=== PATIENT | female | born 1985 | race Caucasian/White ===

== ENCOUNTER 2021-05-02 19:00 | Emergency (ER) | payer MEDICAID, SELFPAY ==
[2021-05-02 19:05] VITALS: BP 116/73; PULSE 102; RESP 16; TEMP 36.9; O2SAT 100
[2021-05-02] MEDS: Normal Saline 1,000 ML 1000 ML IV (19:15)
[2021-05-02 19:53] LABS: Abs Immature Grans 0.02 10^3/uL (0.0-0.06); Absolute Basophil Count 0.04 10^3/uL (0.0-0.2); Absolute Eosinophil Count 0.02 10^3/uL (0.0-0.7); Absolute Lymphocyte Count 0.33 10^3/uL (1.2-3.4); Absolute Monocyte Count 0.63 10^3/uL (0.1-0.8); Absolute Neutrophil Count 4.93 10^3/uL (1.2-6.7); Basophils % 0.7; Eosinophils % 0.3; HCT 34.5 % (36.0-46.0); HGB 11.9 g/dL (11.2-15.7); Immature Grans % 0.3; Lymphocytes % 5.5; MCH 30.8 pg (27.0-33.0); MCHC 34.5 % (32.0-36.0); MCV 89.4 fL (80-95); MPV 10.9 fL (8.0-11.0); Monocytes % 10.6; Neutrophils % 82.6; Nucleated RBC 0 %; Platelet Count 233 10^3/uL (130-400); RBC 3.86 10^6/uL (3.93-5.22); RDW 12.5 % (11.7-14.6); RDW-SD 40.6 fL; WBC 5.97 10^3/uL (4.4-10.8)
[2021-05-02] MEDS: Ondansetron 4 MG/2 ML VIAL IVP (19:59)
[2021-05-02 20:11] LABS: ALT 12 U/L (14-59); AST 8 U/L (15-37); Albumin 3.6 g/dL (3.4-5.0); Alkaline Phosphatase 45 U/L (46-116); Anion Gap 14.9 mmol/L (3-11); BUN 4 mg/dL (7-18); Bilirubin, Total 0.3 mg/dL (0.2-1.0); CO2 17.1 mmol/L (21.0-32.0); CREATININE 0.5 mg/dL (0.55-1.02); Calcium 8.8 mg/dL (8.5-10.1); Chloride 103 mmol/L (98-107); Glucose 90 mg/dL (74-106); Lipase 164 U/L (73-393); Potassium 3.3 mmol/L (3.5-5.1); Sodium 135 mmol/L (136-145); Total Protein 7.2 g/dL (6.4-8.2)
[2021-05-02 20:11] LABS: Source Nasal/Nares
[2021-05-02 20:13] LABS: Bilirubin Negative (Negative); Blood Negative (Negative); Clarity Clear (Clear); Glucose Negative (Negative); Ketones >=160 mg/dL (Negative); Leukocyte Esterase Negative (Negative); Nitrite Negative (Negative); Urobilinogen 0.2 EU/dL (Up TO 0.2)
--- NOTE | 2021-05-02 20:31 | ED.GENADUL_ITS ---
Discharge Plan Disposition Patient Disposition: HOME Condition: Improving Discharge Details Clinical Impression: COVID Primary Care Provider: Zhao Montes ED Provider: Devan Conte Home Meds and New Rx's Prescriptions: Continued multivit,tx w/iron (hematinic) Tablet 1 tab PO DAILY RF: 0 omega-3 fatty acids Capsule 450 cap PO DAILY RF: 0 magnesium Tablet 1 tab PO DAILY RF: 0 Discharge Instructions Instructions: COVID-19 (Coronavirus Disease 2019) (ED) Additional Instructions: You have tested positive for Covid. As we discussed you should be quarantining for a minimum of 5 days and until you are symptoms are improving and you are afebrile without any antipyretics. Your laboratory values do reveal that you are dry and you have received 2 L of IV fluid. Zofran as directed. Please watch for new or worsening symptoms and return to the ER for any concerns. I have set you up for an ultrasound tomorrow morning, the radiology department should contact you to set up a time, be sure to let them know your test today was Covid. I have also placed you on the [facility] list to help expedite outpatient [facility] [employer] care, please contact their office tomorrow as well. Last, please contact your primary care provider tomorrow to discuss your ER visit, ongoing symptoms, and need for outpatient reevaluation. Referrals: Jeniffer Lara MD [ [facility] STAFF PHYSICIAN] - Discharge Data Discharge Date/Time-TO BE ENTERED AT DEPARTURE: 05/02/21 21:58 Medical Decision Making <AYLA Reeves - Last Filed: 05/02/21 21:44> 35-year-old female G4, P1, approximately 10 weeks , presents to the ER concerned about food poisoning, abdominal cramping, nausea, vomiting, body aches, fever, left lower back pain. Clinically she appears dry, heart rate of 102, but her abdomen is soft, nontender. She denies any dysuria or hematuria. Denies any vaginal bleeding or discharge. I am unable to reproduce any back discomfort. No CVA tenderness. Based upon her presentation extremely low suspicion for ectopic , pyelonephritis, etc. Given her fever, although afebrile now without any antipyretic, will obtain a Covid swab. Plan is to obtain a quantitative hCG, CBC, CMP, urinalysis, give IV fluid and Zofran Patient receiving first liter of IV fluid and given Zofran, reports improvement of her symptoms. Heart rate now in the 90s No evidence of leukocytosis or severe anemia. Platelet count is unremarkable. Sodium of 135, potassium 3.3, anion gap elevated at 14.9, creatinine 0.5 with a GFR greater than 60. Lipase 164. Beta hCG is appropriate at 157,092. Her urine reveals greater than 160 ketones but otherwise unremarkable. No evidence of infection. Given her ketones, signs of dehydration, will give a liter of lactated Ringer's as well. Case was discussed with Dr. Larson who personally evaluated the patient performed a bedside ultrasound confirming intrauterine . Please see his note. Covid positive resulted. This could certainly explain her symptoms. She remains afebrile, heart rate is no longer revealing tachycardia. Oxygen level of 100% on room air. We discussed her test result. Plan is to treat with Zofran, adequate hydration electrolyte intake at home, and very strict discharge and return precautions were provided. I will get her on the women's health list to help expedite outpatient [employer] care as well as get her an outpatient transvaginal-pelvic ultrasound tomorrow. I did stress that she let radiology department know that she is Covid positive. We also discussed standard [facility] quarantine procedures. Her plan is to contact her primary care provider tomorrow to discuss her ongoing symptoms and outpatient reevaluation likely upon telemedicine. Patient is without other risk factors and is not qualify for emergent ER monoclonal antibody infusion. This documentation was generated using [employer] dictation system, please disregard any oddities of phrase or misspellings. Medical Records Medical records reviewed: Yes I reviewed the patient's medical records. Lab Data Lab results reviewed: Yes I reviewed the patient's lab results. Labs: Laboratory Tests Range/Units 05/02/21 05/02/21 05/02/21 19:30 19:30 19:55 WBC (4.4-10.8) 10^3/uL 5.97 RBC (3.93-5.22) 10^6/uL 3.86 L Hgb (11.2-15.7) g/dL 11.9 Hct (36.0-46.0) % 34.5 L MCV (80-95) fL 89.4 MCH (27.0-33.0) pg 30.8 MCHC (32.0-36.0) % 34.5 RDW (11.7-14.6) % 12.5 Plt Count (130-400) 10^3/uL 233 MPV (8.0-11.0) fL 10.9 Immature Gran % 0.3 Neutrophils % 82.6 Lymphocytes % 5.5 Monocytes % 10.6 Eosinophils % 0.3 Basophils % 0.7 Nucleated RBC % % 0 Absolute Neutrophils (1.2-6.7) 10^3/uL 4.93 Absolute Lymphocytes (1.2-3.4) 10^3/uL 0.33 L Absolute Monocytes (0.1-0.8) 10^3/uL 0.63 Absolute Eosinophils (0.0-0.7) 10^3/uL 0.02 Absolute Basophils (0.0-0.2) 10^3/uL 0.04 Sodium (136-145) mmol/L 135 L Potassium (3.5-5.1) mmol/L 3.3 L Chloride (98-107) mmol/L 103 Carbon Dioxide (21.0-32.0) mmol/L 17.1 L Anion Gap (3-11) mmol/L 14.9 H BUN (7-18) mg/dL 4 L Creatinine (0.55-1.02) mg/dL 0.5 L Estimated GFR/1.73 m2 (mL/min/1.73m2) >= 60.00 Glucose (74-106) mg/dL 90 Calcium (8.5-10.1) mg/dL 8.8 Total Bilirubin (0.2-1.0) mg/dL 0.3 AST (15-37) U/L 8 L ALT (14-59) U/L 12 L Alkaline Phosphatase (46-116) U/L 45 L Total Protein (6.4-8.2) g/dL 7.2 Albumin (3.4-5.0) g/dL 3.6 Lipase (73-393) U/L 164 Beta HCG, Quant (1-3) mIU/mL [id number] H Urine Color (Yellow) Urine Clarity (Clear) Urine pH (5-8) Ur Specific Mcnabb (1.005-1.025) Urine Protein (Negative) mg/dL Urine Ketones (Negative) mg/dL Urine Blood (Negative) Urine Nitrite (Negative) Urine Bilirubin (Negative) Urine Urobilinogen (Up TO 0.2) EU/dL Ur Leukocyte Esterase (Negative) Urine Glucose (Negative) mg/dL COVID-19 Source SARS-CoV-2 (PCR) (Negative) Influenza Type A (PCR) (Negative) Influenza Type B (PCR) (Negative) RSV (PCR) (Negative) Patient ABO/Rh O Negative Range/Units 05/02/21 05/02/21 20:00 20:00 WBC (4.4-10.8) 10^3/uL RBC (3.93-5.22) 10^6/uL Hgb (11.2-15.7) g/dL Hct (36.0-46.0) % MCV (80-95) fL MCH (27.0-33.0) pg MCHC (32.0-36.0) % RDW (11.7-14.6) % Plt Count (130-400) 10^3/uL MPV (8.0-11.0) fL Immature Gran % Neutrophils % Lymphocytes % Monocytes % Eosinophils % Basophils % Nucleated RBC % % Absolute Neutrophils (1.2-6.7) 10^3/uL Absolute Lymphocytes (1.2-3.4) 10^3/uL Absolute Monocytes (0.1-0.8) 10^3/uL Absolute Eosinophils (0.0-0.7) 10^3/uL Absolute Basophils (0.0-0.2) 10^3/uL Sodium (136-145) mmol/L Potassium (3.5-5.1) mmol/L Chloride (98-107) mmol/L Carbon Dioxide (21.0-32.0) mmol/L Anion Gap (3-11) mmol/L BUN (7-18) mg/dL Creatinine (0.55-1.02) mg/dL Estimated GFR/1.73 m2 (mL/min/1.73m2) Glucose (74-106) mg/dL Calcium (8.5-10.1) mg/dL Total Bilirubin (0.2-1.0) mg/dL AST (15-37) U/L ALT (14-59) U/L Alkaline Phosphatase (46-116) U/L Total Protein (6.4-8.2) g/dL Albumin (3.4-5.0) g/dL Lipase (73-393) U/L Beta HCG, Quant (1-3) mIU/mL Urine Color (Yellow) Yellow Urine Clarity (Clear) Clear Urine pH (5-8) 7.0 Ur Specific Mcnabb (1.005-1.025) 1.020 Urine Protein (Negative) mg/dL Negative Urine Ketones (Negative) mg/dL >=160 H Urine Blood (Negative) Negative Urine Nitrite (Negative) Negative Urine Bilirubin (Negative) Negative Urine Urobilinogen (Up TO 0.2) EU/dL 0.2 Ur Leukocyte Esterase (Negative) Negative Urine Glucose (Negative) mg/dL Negative COVID-19 Source Nasal/Nares SARS-CoV-2 (PCR) (Negative) POSITIVE A* Influenza Type A (PCR) (Negative) Negative Influenza Type B (PCR) (Negative) Negative RSV (PCR) (Negative) Negative Patient ABO/Rh <George Larson MD - Last Filed: 05/05/21 09:03> Patient seen, examined, and discussed with AYLA Conte. [id number] bedside transabdominal ultrasound, early first trimester OB, was performed by me: Gestational sac with fetus present, heart rate 190. Patient is covid positive. No hypoxia or respiratory distress. I agree with treatment plan as discussed/documented by AYLA Conte. HPI <AYLA Reeves - Last Filed: 05/02/21 21:44> General Mode of arrival: ambulatory . Date/Time Provider Initiated Documentation: 05/02/21 19:07 . Limitations to Documentation: no limitations . Information obtained by: patient . HPI Narrative: This is a 35-year-old female, G4, P1, 2 abortions, approximately 10 weeks , has not had any care yet, presents to the ER reporting body aches, fever of 101.5 at home, low left back-upper buttock pain and bilateral flank discomfort that wraps around to her abdomen associated with cramping, nausea, vomiting x2 today. She states that she initially thought that she had food poisoning as she ate some pesto that was questionable last night, her did have a stomachache today but is not quite as sick as she is. She denies recent illness or sick contacts. She states that she is vaccinated for Covid. She denies headache, neck pain, chest pain, shortness of breath, dysuria, hematuria, vaginal bleeding or discharge. She has not taken any medication for her symptoms today. She does state that she took at home Covid test earlier today and it was negative Related Data Home Medications Medication Instructions Recorded Confirmed magnesium 1 tab PO DAILY 05/02/21 05/02/21 multivit,tx w/iron (hematinic) 1 tab PO DAILY 05/02/21 05/02/21 omega-3 fatty acids 450 cap PO DAILY 05/02/21 05/02/21 Allergies Allergy/AdvReac Type Severity Reaction Status Date / Time codeine Allergy Unverified 05/02/21 19:10 General Stated Complaint: FlankPain ELIZABETH: 3 Review of Systems <AYLA Reeves - Last Filed: 05/02/21 21:44> Constitutional Constitutional: Reports fever(s) and Denies headache(s) ENT Ears, Nose, Mouth, and Throat: Denies headache(s) and Denies neck pain Cardiovascular Cardiovascular: Denies chest pain and Denies dyspnea Respiratory Respiratory: Denies cough and Denies dyspnea Gastrointestinal Gastrointestinal: Reports abdominal pain, Denies constipation, Denies diarrhea, Reports nausea and Reports vomiting Genitourinary Genitourinary: Denies abnormal vaginal bleeding, Denies dysuria, Denies pelvic pain and Denies vaginal discharge Musculoskeletal Musculoskeletal: Reports back pain, Reports myalgias and Denies neck pain Integumentary/Breasts Skin/Breast: Denies rash Neurologic Neurologic: Denies headache(s) PFS <AYLA Reeves - Last Filed: 05/02/21 21:44> All Active Problems (Updated 05/02/21 @ 21:40 by AYLA Reeves) COVID (Acute) Social History Smoking/Tobacco Use Status: Never Smoking risk assessment performed?: Yes Alcohol Intake: never Drug use: Never Substance use type: does not use Do you feel safe at home: Yes Do you feel safe in your relationship?: Yes Exam <AYLA Reeves - Last Filed: 05/02/21 21:44> Const General: cooperative, healthy appearing, comfortable and no acute distress Orientation: alert, awake and oriented x3 HENMT Head: normal to inspection, normocephalic and atraumatic Mouth: moist mucous membranes abnormal (dry) Eyes General: appearance normal, both eyes and all related structures Conjunctivae: conjunctivae normal Neck Neck: normal visual inspection, full ROM, no meningeal signs, trachea midline, supple and nontender Resp Effort & Inspection: normal respiratory effort and able to speak in complete sentences Auscultation: clear to auscultation bilaterally Cardio Rate: tachycardic (102) Rhythm: regular rhythm GI Inspection: normal to inspection Palpation: soft, not firm, no guarding, no pulsatile masses and nontender Auscultation: normal bowel sounds Other: Examination consistent with approximately 10 weeks Back/Spine/Pelvis Back: no CVA tenderness and No back tenderness Skin General skin exam: no rashes or lesions noted Neuro General: patient alert, patient awake, moves all extremities and no focal motor deficits Cognition: normal cognition Gait: normal gait Sensory Exam: no sensory deficits noted Extrem General: normal to inspection, full ROM, capillary refill normal, no pedal edema and no calf tenderness Psych Appearance: grossly normal Mental Status: mental status grossly normal Course <AYLA Reeves - Last Filed: 05/02/21 21:44> Vital Signs Vital signs: Vital Signs Temperature 36.9 C 05/02/21 19:05 Pulse 102 H 05/02/21 19:05 Respiratory Rate 16 05/02/21 19:05 Blood Pressure 116/73 05/02/21 19:05 Pulse Oximetry 100 05/02/21 19:05 Temperature 36.9 C 05/02/21 19:05 Temperature Source Skin 05/02/21 19:05 Pulse 102 H 05/02/21 19:05 Respiratory Rate 16 05/02/21 19:05 Respiratory Effort 05/02/21 19:09 Blood Pressure 116/73 05/02/21 19:05 Blood Pressure Position Sitting 05/02/21 19:05 Pulse Oximetry 100 05/02/21 19:05 Oxygen Delivery Method Room Air 05/02/21 19:05 Oxygen Flow Rate 0 05/02/21 19:05 Pain Level 7 05/02/21 19:13 Lab/Test Results Lab/Test Results: Laboratory Tests Range/Units 05/02/21 05/02/21 05/02/21 19:30 19:30 20:00 WBC (4.4-10.8) 10^3/uL 5.97 RBC (3.93-5.22) 10^6/uL 3.86 L Hgb (11.2-15.7) g/dL 11.9 Hct (36.0-46.0) % 34.5 L MCV (80-95) fL 89.4 MCH (27.0-33.0) pg 30.8 MCHC (32.0-36.0) % 34.5 RDW (11.7-14.6) % 12.5 Plt Count (130-400) 10^3/uL 233 MPV (8.0-11.0) fL 10.9 Immature Gran % 0.3 Neutrophils % 82.6 Lymphocytes % 5.5 Monocytes % 10.6 Eosinophils % 0.3 Basophils % 0.7 Nucleated RBC % % 0 Absolute Neutrophils (1.2-6.7) 10^3/uL 4.93 Absolute Lymphocytes (1.2-3.4) 10^3/uL 0.33 L Absolute Monocytes (0.1-0.8) 10^3/uL 0.63 Absolute Eosinophils (0.0-0.7) 10^3/uL 0.02 Absolute Basophils (0.0-0.2) 10^3/uL 0.04 Sodium (136-145) mmol/L 135 L Potassium (3.5-5.1) mmol/L 3.3 L Chloride (98-107) mmol/L 103 Carbon Dioxide (21.0-32.0) mmol/L 17.1 L Anion Gap (3-11) mmol/L 14.9 H BUN (7-18) mg/dL 4 L Creatinine (0.55-1.02) mg/dL 0.5 L Estimated GFR/1.73 m2 (mL/min/1.73m2) >= 60.00 Glucose (74-106) mg/dL 90 Calcium (8.5-10.1) mg/dL 8.8 Total Bilirubin (0.2-1.0) mg/dL 0.3 AST (15-37) U/L 8 L ALT (14-59) U/L 12 L Alkaline Phosphatase (46-116) U/L 45 L Total Protein (6.4-8.2) g/dL 7.2 Albumin (3.4-5.0) g/dL 3.6 Lipase (73-393) U/L 164 Urine Color (Yellow) Yellow Urine Clarity (Clear) Clear Urine pH (5-8) 7.0 Ur Specific Mcnabb (1.005-1.025) 1.020 Urine Protein (Negative) mg/dL Negative Urine Ketones (Negative) mg/dL >=160 H Urine Blood (Negative) Negative Urine Nitrite (Negative) Negative Urine Bilirubin (Negative) Negative Urine Urobilinogen (Up TO 0.2) EU/dL 0.2 Ur Leukocyte Esterase (Negative) Negative Urine Glucose (Negative) mg/dL Negative COVID-19 Source Range/Units 05/02/21 20:00 WBC (4.4-10.8) 10^3/uL RBC (3.93-5.22) 10^6/uL Hgb (11.2-15.7) g/dL Hct (36.0-46.0) % MCV (80-95) fL MCH (27.0-33.0) pg MCHC (32.0-36.0) % RDW (11.7-14.6) % Plt Count (130-400) 10^3/uL MPV (8.0-11.0) fL Immature Gran % Neutrophils % Lymphocytes % Monocytes % Eosinophils % Basophils % Nucleated RBC % % Absolute Neutrophils (1.2-6.7) 10^3/uL Absolute Lymphocytes (1.2-3.4) 10^3/uL Absolute Monocytes (0.1-0.8) 10^3/uL Absolute Eosinophils (0.0-0.7) 10^3/uL Absolute Basophils (0.0-0.2) 10^3/uL Sodium (136-145) mmol/L Potassium (3.5-5.1) mmol/L Chloride (98-107) mmol/L Carbon Dioxide (21.0-32.0) mmol/L Anion Gap (3-11) mmol/L BUN (7-18) mg/dL Creatinine (0.55-1.02) mg/dL Estimated GFR/1.73 m2 (mL/min/1.73m2) Glucose (74-106) mg/dL Calcium (8.5-10.1) mg/dL Total Bilirubin (0.2-1.0) mg/dL AST (15-37) U/L ALT (14-59) U/L Alkaline Phosphatase (46-116) U/L Total Protein (6.4-8.2) g/dL Albumin (3.4-5.0) g/dL Lipase (73-393) U/L Urine Color (Yellow) Urine Clarity (Clear) Urine pH (5-8) Ur Specific Mcnabb (1.005-1.025) Urine Protein (Negative) mg/dL Urine Ketones (Negative) mg/dL Urine Blood (Negative) Urine Nitrite (Negative) Urine Bilirubin (Negative) Urine Urobilinogen (Up TO 0.2) EU/dL Ur Leukocyte Esterase (Negative) Urine Glucose (Negative) mg/dL COVID-19 Source Nasal/Nares
[2021-05-02] MEDS: Lactated Ringers 1,000 ML 1000 ML IV (20:32)
[2021-05-02 20:50] LABS: Influenza A PCR Negative (Negative); Influenza B PCR Negative (Negative); RSV PCR Negative (Negative)
[2021-05-02 21:15] LABS: COVID-19 PCR POSITIVE (Negative)
[2021-05-02 21:53] VITALS: BP 102/57; PULSE 93; RESP 16; TEMP 38.6; O2SAT 97
[2021-05-02] MEDS: Ondansetron O.D.T. 4 MG TABEF, 3 TABS/BTL PO (22:00)
--- NOTE | 2021-05-03 08:27 | NUR.NOTE ---
Per KAROLINA Tran financial secretary, patient was called for outpt testing and she is now COVID positive. She elected to wait until next week May.08 at 11am to do the exam. Tracey Ramos Nursing Note:
== END 2021-05-02 21:58 | disposition home or self-care (01) ==
PROVIDERS: Emergency Provider Physician Assistant; PCP General Practice
DX: O98.511 Other viral diseases complicating pregnancy, first trimester (principal); Z3A.10 10 weeks gestation of pregnancy; U07.1 COVID-19
CPT/HCPCS: 36415; 80053; 83690; 86900; 86901; 87637; 96361; 96374; 99283; 99284; 81003; 84702; 85025; J2405

== ENCOUNTER 2021-05-08 01:09 | Outpatient (CLI) | payer MEDICAID, SELFPAY ==
--- NOTE | 2021-05-08 11:24 | DI.US_ITS ---
Exam(s) US OB 1ST TRIMESTER EXAM: US OB 1ST TRIMESTER CLINICAL HISTORY: ABD CRAMPING, 10 WEEKS , F/U IN ED. COMPARISON: No exams were available for comparison TECHNIQUE: Transabdominal Transvaginal first trimester obstetrical ultrasound performed. FINDINGS: Sonographic images demonstrate a single intrauterine gestation. A yolk sac and pole are seen. Sonographically assessed gestational age based upon crown-rump length of 3.4 cm is: 10 weeks 2 days Estimated date of delivery based on this ultrasound is: 12/02/2021 heart rate motion is Dopplered at: 163 bpm. No free fluid identified. Pelvic Measurments Uterus: 11.0 long x 7.5 AP x 9.6 transverse cm Rt Ovary: Not visualized on this examination. Lt Ovary: 3.3 x 3.0 x 2.5 cm IMPRESSION: Single live intrauterine gestation as above. DATA REPOSITORY:
== END 2021-05-08 01:29 ==
PROVIDERS: PCP General Practice; Visit Provider Physician Assistant
DX: O26.891 Other specified pregnancy related conditions, first trimester (principal); R10.84 Generalized abdominal pain; Z3A.10 10 weeks gestation of pregnancy
CPT/HCPCS: 76801

== ENCOUNTER 2021-06-08 03:51 | Outpatient (CLI) | payer MEDICAID, SELFPAY ==
[2021-06-08 15:13] LABS: Abs Immature Grans 0.03 10^3/uL (0.0-0.06); Absolute Basophil Count 0.05 10^3/uL (0.0-0.2); Absolute Eosinophil Count 0.05 10^3/uL (0.0-0.7); Absolute Lymphocyte Count 2.21 10^3/uL (1.2-3.4); Absolute Monocyte Count 0.58 10^3/uL (0.1-0.8); Absolute Neutrophil Count 6.25 10^3/uL (1.2-6.7); Basophils % 0.5; Eosinophils % 0.5; HCT 35.1 % (36.0-46.0); Immature Grans % 0.3; Lymphocytes % 24.1; MCH 30.8 pg (27.0-33.0); MCHC 34.2 % (32.0-36.0); MCV 90.2 fL (80-95); Monocytes % 6.3; Neutrophils % 68.3; Nucleated RBC 0 %; Platelet Count 262 10^3/uL (130-400); RBC 3.89 10^6/uL (3.93-5.22); RDW 12.8 % (11.7-14.6); RDW-SD 42.2 fL; WBC 9.17 10^3/uL (4.4-10.8)
[2021-06-08 16:45] LABS: TSH (W/Ref FT4) 1.41 uIU/mL (0.36-3.74); Vitamin B12 581 pg/mL (193-986)
[2021-06-10 13:44] LABS: Varicella IgG Antibody Positive (See Note)
[2021-06-10 13:48] LABS: Rubella IgG Ab (UVM) Positive (See Note)
[2021-06-11 10:23] LABS: Hepatitis C Ab w Rflx HCV PCR Negative (Negative)
[2021-06-11 11:36] LABS: HIV-1/2 Ag & Ab Screen Negative (Negative)
[2021-06-11 11:52] LABS: Hepatitis B Surface Ag Negative (Negative)
[2021-06-11 15:09] LABS: Syphilis IgG w/Reflex Nonreactive (Nonreactive)
== END 2021-06-08 03:52 | disposition home or self-care (01) ==
LOC: LBO 03:51
PROVIDERS: Advanced Practice Midwife; PCP General Practice; Visit Provider Advanced Practice Midwife
DX: Z34.91 Encounter for supervision of normal pregnancy, unspecified, first trimester (principal); Z83.49 Family history of other endocrine, nutritional and metabolic diseases; D51.0 Vitamin B12 deficiency anemia due to intrinsic factor deficiency
CPT/HCPCS: 36415; 86787; 86803; 86850; 86900; 86901; 87340; 87389; 82607; 84443; 85025; 86762; 86780

== ENCOUNTER 2021-06-08 15:25 | Outpatient (REF) | payer MEDICAID, SELFPAY ==
[2021-06-08 17:23] LABS: *AMPHETAMINES SCREEN URINE Negative (Negative); *BARBITURATES SCREEN URINE Negative (Negative); *BENZODIAZEPINES SCREEN URINE Negative (Negative); Cannabinoids THC Negative (Negative); Cocaine Screen,Urine Negative (Negative); METHADONE URINE SCREEN Negative (Negative); OPIATES URINE SCREEN Negative (Negative)
[2021-06-08 17:24] LABS: Tricyclic Antidepressants Negative (Negative)
[2021-06-11 14:18] LABS: Chlamydia Result Negative (Negative); GC Result Negative (Negative)
[2021-06-14 10:30] LABS: Buprenorphine Negative ng/mL (Cutoff: 5.0)
== END 2021-06-08 15:26 | disposition home or self-care (01) ==
LOC: LBN 15:25
PROVIDERS: PCP General Practice; Visit Provider Advanced Practice Midwife
DX: Z34.91 Encounter for supervision of normal pregnancy, unspecified, first trimester (principal)
CPT/HCPCS: 80307; 87491; 87591; 87086

== ENCOUNTER 2021-07-10 02:56 | Outpatient (CLI) | payer MEDICAID, SELFPAY ==
--- NOTE | 2021-07-10 07:45 | DI.US_ITS ---
Exam(s) US OB 2-3 TRIMESTER EXAM: US OB 2-3 TRIMESTER CLINICAL HISTORY: ,Z34.90. TECHNIQUE: Transabdominal obstetrical ultrasound performed. COMPARISON: US US OB 1ST TRIMESTER from 05/08/2021 FINDINGS: Transabdominal obstetrical ultrasound performed. FINDINGS: Number of fetuses: One. position: Cephalic heart rate: 155 bpm. Placental location: There is a grade 1 posterior placenta. No evidence of previa. Amniotic fluid index: Amount of fluid is within normal limits. ANATOMICAL SURVEY: Within normal limits. BIOMETRIC DATA: BPD: 4.4cm consistent with 19 weeks 2 days. HC: 16.2cm consistent with 19 weeks. AC: 13.6cm consistent with 19 weeks 1 day. FL: 2.8cm consistent with 18 weeks 4 days. Cisterna Magna: 3.0 mm Cerebellum: 1.92 cm EFW: 261 grms 23% Composite Age: 19 weeks EDC by US: 12/04/2021 IMPRESSION: 1. Single live intrauterine gestation as above. 2. Normal anatomic survey. DATA REPOSITORY:
== END 2021-07-10 03:16 ==
PROVIDERS: PCP General Practice; Visit Provider Advanced Practice Midwife
DX: Z34.92 Encounter for supervision of normal pregnancy, unspecified, second trimester (principal); Z3A.19 19 weeks gestation of pregnancy
CPT/HCPCS: 76805

== ENCOUNTER 2021-09-04 03:02 | Outpatient (CLI) | payer MEDICAID, SELFPAY ==
[2021-09-04 11:19] LABS: Abs Immature Grans 0.03 10^3/uL (0.0-0.06); Absolute Basophil Count 0.05 10^3/uL (0.0-0.2); Absolute Eosinophil Count 0.08 10^3/uL (0.0-0.7); Absolute Lymphocyte Count 1.67 10^3/uL (1.2-3.4); Absolute Monocyte Count 0.56 10^3/uL (0.1-0.8); Absolute Neutrophil Count 7.15 10^3/uL (1.2-6.7); Basophils % 0.5; Eosinophils % 0.8; HCT 33.5 % (36.0-46.0); HGB 11.5 g/dL (11.2-15.7); Immature Grans % 0.3; Lymphocytes % 17.5; MCH 32.1 pg (27.0-33.0); MCHC 34.3 % (32.0-36.0); MCV 94 fL (80-95); MPV 11.3 fL (8.0-11.0); Monocytes % 5.9; Platelet Count 220 10^3/uL (130-400); RBC 3.58 10^6/uL (3.93-5.22); RDW 12.7 % (11.7-14.6); RDW-SD 43.8 fL; WBC 9.54 10^3/uL (4.4-10.8)
[2021-09-04 11:30] LABS: Glucose,1 Hr (Glucola) 75 mg/dL (80-140)
== END 2021-09-04 03:03 | disposition home or self-care (01) ==
LOC: LBO 03:02
PROVIDERS: PCP General Practice; Visit Provider Obstetrics & Gynecology
DX: O26.892 Other specified pregnancy related conditions, second trimester (principal); Z67.91 Unspecified blood type, Rh negative; Z3A.27 27 weeks gestation of pregnancy
CPT/HCPCS: 36415; 82950; 86850; 90384; 85025

== ENCOUNTER 2021-11-08 12:41 | Outpatient (REF) | payer MEDICAID, SELFPAY ==
[2021-11-08 16:18] LABS: *AMPHETAMINES SCREEN URINE Negative (Negative); *BARBITURATES SCREEN URINE Negative (Negative); *BENZODIAZEPINES SCREEN URINE Negative (Negative); Cannabinoids THC Negative (Negative); Cocaine Screen,Urine Negative (Negative); METHADONE URINE SCREEN Negative (Negative); OPIATES URINE SCREEN Negative (Negative)
[2021-11-08 16:28] LABS: Tricyclic Antidepressants Negative (Negative)
[2021-11-14 11:26] LABS: Buprenorphine Negative ng/mL (Cutoff: 5.0); Norbuprenorphine Negative ng/mL (Cutoff: 2.5)
== END 2021-11-08 12:42 | disposition home or self-care (01) ==
LOC: LBN 12:41
PROVIDERS: PCP General Practice; Visit Provider Advanced Practice Midwife
DX: Z34.93 Encounter for supervision of normal pregnancy, unspecified, third trimester (principal); Z36.85 Encounter for antenatal screening for Streptococcus B
CPT/HCPCS: 80307; 87081

== ENCOUNTER 2021-12-11 16:03 | Inpatient (IN) | payer MEDICAID, SELFPAY ==
[2021-12-11] VITALS (9 sets, daily range): BP systolic 108–120; BP diastolic 66–71; PULSE 67–89; RESP 17–18; TEMP 36.6–37.3; O2SAT 98–99
--- NOTE | 2021-12-11 16:05 | W.PM.OBHPL1 ---
Date of service: 12/11/21 Time of Service: 16:06 Assessment and Plan Assessment and plan (1) Post-dates : Status: Acute Assessment and plan: I discussed my concern about the heart rate pattern and the need for close surveillance of well being. Rosenda is tearful and disappointed expressing that she wishes she would just go into labor. She and her verbalize understanding of the recommendation for continued monitoring of the baby and agree at this time. She was moved to a more comfortable room and will await signs of active labor which may be stimulated by the recent cervical exam. Comfort measures and anticipate . Dr Lemus is the chemical engineering professor motion picture set up worker and is aware of this plan. (2) Category II heart rate tracing during maternal care in third trimester: Status: Acute Assessment and plan: Will continue to observe FHR pattern continuously. PO fluids provided. Rosenda hopes to avoid induction of labor and prefers natural . Will consider induction if no signs of active labor in 24 hours. OB-HPI Labor/Delivery History of Present Illness Chief Complaint: Other (category 2 tracing). JAIRO Calculator Estimated Delivery Date Method Current WG Current Estimate 12/02/21 Ultrasound #1 41w 2d Comments: Rosenda came to the Center for post dates testing at 41 + 2 weeks gestation. Shortly after being placed on the monitor, a heart rate deceleration was heard and confirmed by O2 sat monitor. The monitor was removed for visualization of the heart by US performed by Dr. Lara. bradycardia was confirmed by US. The deceleration lasted for approximately 5 minutes. FELIPE measurements were obtained by Dr Lara with vertical pockets measured in all 4 quadrants for an FELIPE of 10. History of Present Expected Delivery Route/Plan - CNM FOB - Simba Hung Doesn't want to know gender, if male no circ Team is LAURY Cottrell, friend Chelo and certified giuseppe Guido GBS - negative Specific Issues/Plan 1. Vaccinated with J & J, Covid+ 05/02/21, discussed ASA daily and offer 32 week US: declined 1A. 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 1b. FOB is vaccinated 1c. Prefers to wait and consider whether to have the 32 US. 09/27: declines 32 wk scan 2. RH neg- rhogam @ 28 wks: done 5/31 3. MTHFR mutation 4. Declines serum genetic testing 5. Pernicious anemia, takes methylated B12, level at initial OB is nml @ 581 6. Chronic low back pain - Doing myofascial release with Abbie Watson [facility] All Active Problems (Updated 12/11/21 @ 16:12 by Carey Montero CNM) Category II heart rate tracing during maternal care in third trimester (Acute) Post-dates (Acute) Rh negative state in antepartum period (Acute) Low back pain (Acute) coccgeal injuries - sees a seismic engineer MTHFR gene mutation (Acute) Pernicious anemia (Acute) Takes oral methylated B-12 (Acute) COVID (Acute) Tested positive 05/02/21 Medical History (Updated 12/11/21 @ 16:12 by Carey Montero CNM) Family history of thyroid disease in mother Lyme disease [id number], treated with herbal medicine Surgical History (Updated 06/08/21 @ 14:54 by Carey Montero CNM) Fracture, clavicle Family History (Updated 06/08/21 @ 13:38 by Carey Montero CNM) Mother Depression Osteoarthritis Graves' disease H/O radioactive iodine thyroid ablation Maternal Grandfather Substance use disorder Maternal Grandmother Substance use disorder Social History Smoking/Tobacco Use Status: Never Smoking risk assessment performed?: Yes Alcohol Intake: never Drug use: Never Substance use type: does not use Do you feel safe at home: Yes Do you feel safe in your relationship?: Yes History History 4 Para 1 Hx # Term Pregnancies 1 Multiple births 0 Hx # Pregnancies 0 Ectopic pregnancies 0 AB induced 2 Hx Number of Living Children 1 AB spontaneous 0 Past Pregnancies Del. Date GA/Weeks # Preg Succ Route Wgt Sex Labor Lgth Anesthesia Location Prov Complic 02/26/17 40 No Yes vaginal 8 lb 2 oz Male 17 regional [facility] Delivery Date: 02/26/17 Last Updated by: Julia Posada Home transfer for epidural, 4-5 hrs after arrival Sydni Meds Allergies and Home Medications Allergies Allergy/AdvReac Type Severity Reaction Status Date / Time codeine Allergy Verified 12/03/21 10:43 seasonal allergies Allergy Uncoded 12/03/21 10:43 Home Medications Medication Instructions Recorded Confirmed Type magnesium 1 tab PO DAILY 05/02/21 12/11/21 History omega-3 fatty acids 450 cap PO DAILY 05/02/21 12/11/21 History vitamin B complex (Complex B-100 1 tab PO DAILY 06/08/21 12/11/21 History tablet,extended release) multivitamin 1 tab PO DAILY 12/03/21 12/11/21 History Exam Physical Exam Vital signs: Temp Pulse BP Pulse Ox 97.9 F 67 108/68 99 12/11/21 14:50 12/11/21 14:50 12/11/21 14:50 12/11/21 14:24 Detailed Labor and Delivery Exam Dilation: 1 Effacement (%): 60 station: -2 Cervix position: mid Consistency: soft Lo Score: Cervical Points Exam 0 1 2 3 Dilation Closed 1-2cm 3-4 cm 5-6cm Effacement 0-30% 40-50% 60-70% 80% Consistency Firm Medium Soft Station -3 -2 -1,0 +1,+2 Position Posterior Mid Anterior LO Score(Cervical Ripeness Score): 7 Amniotic Membrane Status: Intact Contraction Frequency(min): irregular Contraction Duration(sec): 40-60 Contraction Intensity: Mild Fetus A Heart Rate Baseline: 140 Monitor Accelerations: 10 X 10 Monitor Decelerations: Variable Variability: Moderate (6-25 BPM) Presentation: Vertex Categories: Category II Est. Weight: 7 lb Respiratory Exam Respiratory Exam: Normal Cardiovascular Exam Cardiovascular Exam: Normal Abdominal Exam Abdominal Exam: Normal Exam Exam: Normal Extremities Exam Extremities Exam: Normal Skin Exam Skin Exam: Normal Psychiatric Exam Psychiatric Exam: Normal Risk Assessment Risk for Shoulder Dystocia Historical/Initial OB: NEGATIVE FOR: Pelvic Abnormality, Pre- BMI>30, Previous Shoulder Dystocia or Previous Macrosomia 40 Weeks: POSTIVE FOR: Post Dates; NEGATIVE FOR: EFW> 4500 gms or Maternal Weight Gain >40lb Delivery Plan @ 40 wks: expect NVD Risk for Pre-Eclampsia Date Initiated/Initials: 06/08/21 KM Yes, if one or more: NEGATIVE FOR: Hx Pre-E/Gest HTN, Chronic HTN, Multiple Gestation, Pre-gestational DM, Renal Disease, Systemic Lupus or APA Syndrome Yes, if 2 or more: NEGATIVE FOR: Nulliparity, Age>= 35 yrs, >10yr btwn pregnancies, BMI>30, ethinicty, Mother/Sister w/ Pre-E or Previous IUGR Risk for Post- Hemorrhage Initial: NEGATIVE FOR: Multiple Gestation, Previous PPH, Known Clotting Deficiency, Grand Multiparity or Anticoagulation Risks Reviewed Risks Reviewed Upon Admission: Yes
[2021-12-11 16:34] LABS: HCT 34.6 % (36.0-46.0); HGB 11.7 g/dL (11.2-15.7); MCH 30.4 pg (27.0-33.0); MCHC 33.8 % (32.0-36.0); MCV 90 fL (80-95); MPV 11.6 fL (8.0-11.0); Platelet Count 256 10^3/uL (130-400); RBC 3.85 10^6/uL (3.93-5.22); RDW 13.7 % (11.7-14.6); RDW-SD 44.7 fL; WBC 9.02 10^3/uL (4.4-10.8)
[2021-12-11 18:45] LABS: Source Nasal/Nares
[2021-12-11 19:19] LABS: COVID-19 PCR Negative (Negative)
--- NOTE | 2021-12-11 19:27 | W.PM.OBNL1 ---
Date of service: 12/11/21 Time of Service: 19:28 Pelvic Exam Dilation: 3 Effacement (%): 100 station: -1 Cervix Position: mid Consistency: soft Pooling: Negative Contractions Monitor Mode: External Contraction Frequency(min): every 4 Fetus A Monitor: External (US) Heart Rate Baseline: 135 Presentation: Vertex Variability: Moderate (6-25 BPM) Categories: Category I FHR Rhythm: Regular Characteristics: Normal Accelerations: 15 X 15 Decelerations: None Assessment Note: Continuous external monitoring. FHR pattern WNL. Assessment and Plan Assessment and plan (1) Category II heart rate tracing during maternal care in third trimester: Status: Acute Assessment and plan: Will continue to observe heart rate pattern. Rest encouraged. Will reassess for signs of labor when appropriate. Objective Abnormal lab results 12/11/21 Range/Units 16:22 RBC 3.85 L (3.93-5.22) 10^6/uL Hct 34.6 L (36.0-46.0) % MPV 11.6 H (8.0-11.0) fL Temp Pulse Resp BP Pulse Ox 97.9 F 79 18 110/66 98 12/11/21 16:45 12/11/21 16:49 12/11/21 16:45 12/11/21 16:48 12/11/21 16:49 Laboratory Results WBC 9.02 10^3/uL (4.4-10.8) 12/11/21 16:22 RBC 3.85 10^6/uL (3.93-5.22) L 12/11/21 16:22 Hgb 11.7 g/dL (11.2-15.7) 12/11/21 16:22 Hct 34.6 % (36.0-46.0) L 12/11/21 16:22 MCV 90 fL (80-95) 12/11/21 16:22 MCH 30.4 pg (27.0-33.0) 12/11/21 16:22 MCHC 33.8 % (32.0-36.0) 12/11/21 16:22 RDW 13.7 % (11.7-14.6) 12/11/21 16:22 Plt Count 256 10^3/uL (130-400) 12/11/21 16:22 MPV 11.6 fL (8.0-11.0) H 12/11/21 16:22 COVID-19 Source Nasal/Nares 12/11/21 16:13 SARS-CoV-2 (PCR) Negative (Negative) 12/11/21 16:13 Patient ABO/Rh O Negative 12/11/21 16:22 Antibody Screen POSITIVE 12/11/21 16:22 Antibody Identification Anti-D 12/11/21 16:22 Subjective Interval history since last seen: Contractions are occurring frequently but are described as mild by Rosenda. Rosenda declines induction of labor and prefers to await onset of spontaneous labor. She has been ambulating for comfort. Results Hemoglobin/Hematocrit: Hgb 11.7 g/dL (11.2-15.7) 12/11/21 16:22 Hct 34.6 % (36.0-46.0) L 12/11/21 16:22 Abnormal Lab Findings: Abnormal Labs 12/11/21 16:22 RBC 3.85 L Hct 34.6 L MPV 11.6 H
[2021-12-12] VITALS (37 sets, daily range): BP systolic 98–134; BP diastolic 53–80; PULSE 71–108; RESP 15–20; TEMP 36.6–37.3; O2SAT 98–100; BMI 29.0
--- NOTE | 2021-12-12 01:17 | W.PM.OBNL1 ---
Date of service: 12/12/21 Time of Service: 01:17 Pelvic Exam Comments: exam deferred Contractions Monitor Mode: External Contraction Frequency(min): every 2-4 Contraction Duration(sec): 40-60 Intensity: Mild Fetus A Monitor: External (US) Heart Rate Baseline: 130 Variability: Moderate (6-25 BPM) Categories: Category I FHR Rhythm: Regular Accelerations: 15 X 15 Decelerations: Variable Recurrence: Intermittent Assessment and Plan Assessment and plan (1) Post-dates : Status: Acute Assessment and plan: Rest was encouraged with continuous monitoring. Will reassess for signs of labor when Rosenda awakes. Will continue to assess FHR pattern. Dr. Lemus was on the unit at 0030 and assessed the tracing and agrees with this plan at this time. Objective Abnormal lab results 12/11/21 Range/Units 16: RBC 3.85 L (3.93-5.22) 10^6/uL Hct 34.6 L (36.0-46.0) % MPV 11.6 H (8.0-11.0) fL Temp Pulse Resp BP Pulse Ox 99.1 F 80 18 115/71 98 12/11/21 20:49 12/11/21 20:49 12/11/21 16:45 12/11/21 20:49 12/11/21 16:49 Laboratory Results WBC 9.02 10^3/uL (4.4-10.8) 12/11/21 16:22 RBC 3.85 10^6/uL (3.93-5.22) L 12/11/21 16:22 Hgb 11.7 g/dL (11.2-15.7) 12/11/21 16:22 Hct 34.6 % (36.0-46.0) L 12/11/21 16:22 MCV 90 fL (80-95) 12/11/21 16:22 MCH 30.4 pg (27.0-33.0) 12/11/21 16:22 MCHC 33.8 % (32.0-36.0) 12/11/21 16:22 RDW 13.7 % (11.7-14.6) 12/11/21 16:22 Plt Count 256 10^3/uL (130-400) 12/11/21 16:22 MPV 11.6 fL (8.0-11.0) H 12/11/21 16:22 COVID-19 Source Nasal/Nares 12/11/21 16:13 SARS-CoV-2 (PCR) Negative (Negative) 12/11/21 16:13 Patient ABO/Rh O Negative 12/11/21 16:22 Antibody Screen POSITIVE 12/11/21 16:22 Antibody Identification Anti-D 12/11/21 16:22 Subjective Interval history since last seen: Rosenda has been resting comfortably.There were several late decelerations at 2100. I recommended an IV at that time. As I was involved in a delivery, SEBASTIEN Sutherland explained the rationale for the IV. due to decelerations. Rosenda declined because she was not guaranteed that the IV would be removed from the site after the infusion. The heart rate improved and the IV was deferred while she is sleeping Results Hemoglobin/Hematocrit: Hgb 11.7 g/dL (11.2-15.7) 12/11/21 16:22 Hct 34.6 % (36.0-46.0) L 12/11/21 16:22 Abnormal Lab Findings: Abnormal Labs 12/11/21 16:22 RBC 3.85 L Hct 34.6 L MPV 11.6 H
--- NOTE | 2021-12-12 11:27 | W.PM.OBNL1 ---
Date of service: 12/12/21 Time of Service: 11:27 Informed Consent Informed Consent: Induction of Labor (consent for induction not granted at this time) and Risk,Benefits,Alternatives Discussed Pelvic Exam Dilation: 3.5 Effacement (%): 70 station: -2 Position: LOP Cervix Position: posterior Consistency: soft BISHOPS Score(Cervical Ripeness Score): 7 Contractions Monitor Mode: External Contraction Frequency(min): 2-4 Contraction Duration(sec): 40-70 Intensity: Mild Fetus A Monitor: External (US) Heart Rate Baseline: 130 Variability: Moderate (6-25 BPM) Categories: Category II FHR Rhythm: Regular Accelerations: 15 X 15 Decelerations: Late Recurrence: Intermittent Amniotic Membrane Status: Intact Assessment and Plan Assessment and plan (1) Category II heart rate tracing during maternal care in third trimester: Status: Acute Assessment and plan: A: 36 yo @ 41+3 wks Category 2 tracing due to occasional late decels Lengthy periods of category 1 tracing remain in evidence Prodromal sx with favorable cvx, Bishops score of 7 P: Pt opts to try relaxation techniques and nipple stimulation Will re-visit AROM vs pitocin infusion this afternoon Continue [place] EFM; change diet to clear liquids Dr. Lemus consulting (2) Post-dates : Status: Acute Objective Objective Narrative Objective Narrative: Tolerating regular diet well Voiding qs, ambulating with ease Continuous EFM via [place] Normotensive and afebrile Periods of category 1 tracing occur, interrupted by occasional lates Pt is attended by her and Flask Handler Detailed discussion of FHT interpretation with pt & supports Reviewed time sensitive nature of placenta function in the presence of contractions Risks and benefits of several methods of cervical ripening and induction of labor reviewed Pt declines IV access initiation at this time, accepts change to clear liquid diet Is very tearful, expresses frustration and fear over the situation Ample time given during discussion for questions and concerns to be expressed and addressed Subjective Interval history since last seen: [place] increase in contractions after membrane sweeping last night but now contractions have decreased. No ROM, no bleeding, appreciates movement. Is feeling very stressed about being told her baby's heart beat is showing difficulty at times, feeling frightened and worried. Still hopes to avoid induction or a C/S, had wanted a tub . Expresses great worries and stress about the prospect of having surgery as she feels traumatized from earlier surgical experiences. Results Hemoglobin/Hematocrit: Hgb 11.7 g/dL (11.2-15.7) 12/11/21 16:22 Hct 34.6 % (36.0-46.0) L 12/11/21 16:22
--- NOTE | 2021-12-12 14:26 | W.PM.OBNL1 ---
Date of service: 12/12/21 Time of Service: 14:26 Informed Consent Informed Consent: Augmentation of Labor (Spontaneous dilatation to 4 cm; informed choice/consent for AROM) and Risk,Benefits,Alternatives Discussed Pelvic Exam Dilation: 4 Effacement (%): 70 station: -2 Position: LOP Cervix Position: mid Consistency: soft BISHOPS Score(Cervical Ripeness Score): 8 Contractions Monitor Mode: External Contraction Frequency(min): 2-3 Contraction Duration(sec): 60-70 Intensity: Mild/Moderate Fetus A Monitor: External (US) Heart Rate Baseline: 130 Variability: Moderate (6-25 BPM) Categories: Category II Accelerations: 15 X 15 Decelerations: Late and Variable Recurrence: Intermittent Amniotic Membrane Status: Intact Assessment and Plan Assessment and plan (1) Category II heart rate tracing during maternal care in third trimester: Status: Acute Assessment and plan: Will initiate IV access Perform AROM Dr. Lemus notified of plan of care Anticipate (2) Post-dates : Status: Acute Objective Vital Signs Reviewed: Yes Objective Narrative Objective Narrative: Pt has continued to ambulate, soaked in tub Tolerates PO fluid intake well Reports feeling increased uterine activity Normotensive, afebrile Questions regarding emergency C/S addressed Reviewed use of terbutaline in the event of intolerance of labor Subjective Interval history since last seen: Feeling contractions more regularly, they are not painful but they do get her attention, has seen some bits of mucous plug on post void wipes. Requests cvx exam now, is agreeable to IV access and AROM. Many questions about C/S procedures, which I addressed as well as possible.
--- NOTE | 2021-12-12 16:06 | W.PM.OBNL1 ---
Date of service: 12/12/21 Time of Service: 16:06 Informed Consent Informed Consent: Augmentation of Labor (Spontaneous dilatation to 4 cm; informed choice/consent for AROM) and Risk,Benefits,Alternatives Discussed Pelvic Exam Dilation: 4 Effacement (%): 70 Fetus A Amniotic Membrane Status: Ruptured Rupture Method: Artifical Amniotic Fluid: Clear Amount: moderate amt Date of Membrane Rupture: 12/12/21 Assessment and Plan Assessment and plan (1) Category II heart rate tracing during maternal care in third trimester: Status: Acute Assessment and plan: Periods of category 1 persist, moderate variability is continuous Occasional late or variable decel noted (2) Post-dates : Status: Acute Assessment and plan: A: Multipara postdates, prolonged prodromal phase Favorable cvx P: AROM accomplished with pt consent Clear fluid returned FHT tolerated procedure well Pt ambulating, EFM per NOVI Anticipate Objective Vital Signs Reviewed: Yes Subjective Interval history since last seen: Pt feels ready to proceed with AROM to augment labor.
--- NOTE | 2021-12-12 19:11 | W.PM.OBNL1 ---
Date of service: 12/12/21 Time of Service: 19:11 Informed Consent Informed Consent: Regional Anesthesia and Risk,Benefits,Alternatives Discussed Pelvic Exam Dilation: 6 Effacement (%): 100 station: -1 Position: LOP Cervix Position: mid Consistency: soft Contractions Monitor Mode: External Contraction Frequency(min): doubling, q3-4 Intensity: Moderate Fetus A Monitor: External (US) Heart Rate Baseline: 120 Variability: Moderate (6-25 BPM) Categories: Category I Accelerations: 15 X 15 Decelerations: Early Amniotic Membrane Status: Ruptured Assessment and Plan Assessment and plan (1) Category II heart rate tracing during maternal care in third trimester: Status: Acute Assessment and plan: A: Overall category 1 tracing per [place] Active labor progressing well Need for pain management P: DOCUMENT ANALYST paged for intrathecal IVF LR @ 125 ml/hr started Case in progress in the OR, DOCUMENT ANALYST will be to room shortly Will consider pitocin augmentation if indicated Anticipate this evening (2) Post-dates : Status: Acute Objective Vital Signs Reviewed: Yes Objective Narrative Objective Narrative: Contractions increased within an hour of AROM Pt has been in labor tub for nearly two hours, Active labor has now progressed to 6/100% vtx -1 Vocalizing with contractions, effective support from [employer] and FOB Once back pain began about 40 minutes ago pt opted to leave the tub Emesis x2, contractions palpate moderately strong Offered and declines nitrous, is requesting intrathecal anesthesia Subjective Interval history since last seen: Back pain has begun to happen with each contraction, very painful, declines nitrous, was soaking in tub for 90 minutes but is on bed now, requests intrathecal anesthesia.
[2021-12-12] MEDS: Normal Saline Flush 10 ML SYR IVP (19:20)
[2021-12-12] MEDS: Lactated Ringers 1,000 ML 125 ML IV (19:20)
--- NOTE | 2021-12-12 19:48 | ANES.PREOP_ITS ---
General Info Date of Service Date Performed: 12/12/21 Height: 5 ft 7 in Weight: 83.915 kg Body Mass Index (BMI): 29.0 Meds Allergies and Home Medications Allergies Allergy/AdvReac Type Severity Reaction Status Date / Time codeine Allergy Verified 12/03/21 10:43 seasonal allergies Allergy Uncoded 12/03/21 10:43 Home Medication Medication Instructions Recorded magnesium 1 tab PO DAILY 05/02/21 omega-3 fatty acids 450 cap PO DAILY 05/02/21 vitamin B complex (Complex B-100 1 tab PO DAILY 06/08/21 tablet,extended release) multivitamin 1 tab PO DAILY 12/03/21 Current Visit Medications: Current Medications Generic Name Dose Route Start Last Admin Trade Name Freq PRN Reason Stop Dose Admin Sodium Chloride 500 mls @ 0 mls/hr 12/12/21 14:24 Saline 500ml Bag IV PRN PRN As Directed Ringer's Solution 1,000 mls @ 125 mls/hr 12/12/21 19:15 12/12/21 19:20 IV 125 mls/hr INFUSION DEBRA Administration IV Miscellaneous Supplies 1 each 12/12/21 14:30 Iv Access IV DIRECTED DEBRA Naloxone HCl 0 mg 12/12/21 19:34 Naloxone 0.4 Mg/Ml Vial IVP 12/13/21 19:34 DIRECTED PRN Sodium Chloride 0 ml 12/12/21 14:24 12/12/21 19:20 Normal Saline Flush 10 Ml Syr IVP 10 ml PRN PRN Administration PFSH Active Problems Active Problems: Problem Status Onset Code Category II heart rate tracing during maternal care in third trimester O36.8330 Post-dates O48.0 Rh negative state in antepartum period O26.899, Z67.91 Low back pain M54.50 MTHFR gene mutation Z15.89 Pernicious anemia D51.0 COVID U07.1 Medical History Medical History (Updated 12/12/21 @ 11:46 by Julia Posada) Family history of thyroid disease in mother Lyme disease [id number], treated with herbal medicine Surgical History Surgical History (Updated 06/08/21 @ 14:54 by Carey Montero CNM) Fracture, clavicle Tobacco Smoking/Tobacco Use Status: Never Alcohol Alcohol Intake: never Substance Use Substance use: Never Substance use type: does not use Prental History History 4 Para 1 Hx # Term Pregnancies 1 Multiple births 0 Hx # Pregnancies 0 Ectopic pregnancies 0 AB induced 2 Hx Number of Living Children 1 AB spontaneous 0 Past Pregnancies Del. Date GA/Weeks # Preg Succ Route Wgt Sex Labor [facility] No Yes vaginal 3685.438 g Male 19 [facility] Delivery Date: 02/26/17 Last Updated by: Julia Posada Home transfer for epidural, 4-5 hrs after arrival Sydni Vital Signs and Lab Results Vital Signs Most Recent Vital Signs in EMR: Most Recent Vital Signs Temp Pulse Resp BP Pulse Ox 36.7 C 103 H 18 129/66 98 12/12/21 19:28 12/12/21 19:28 12/12/21 19:28 12/12/21 19:28 12/11/21 16:49 Lab Results Result Diagrams: 12/11/21 16:22 Blood Type / Crossmatch: Patient ABO/Rh O Negative 12/11/21 Antibody Screen POSITIVE 12/11/21 Complete Blood Count: White Blood Count 9.02 10^3/uL (4.4-10.8) 12/11/21 16:22 Red Blood Count 3.85 10^6/uL (3.93-5.22) L 12/11/21 16:22 Hemoglobin 11.7 g/dL (11.2-15.7) 12/11/21 16:22 Hematocrit 34.6 % (36.0-46.0) L 12/11/21 16:22 Platelet Count 256 10^3/uL (130-400) 12/11/21 16:22 Complete Metabolic Panel: 2 No Data to Display Liver Function Panel: No Data to Display Coagulation Panel: No Data to Display Cardiac Panel: No Data to Display Arterial Blood Gas: No Data to Display Venous Blood Gas: No Data to Display Pancreas Panel: No Data to Display Thyroid Panel: No Data to Display Infectious Disease: Coronavirus (COVID-19)(PCR) Negative (Negative) 12/11/21 16:13 Coronavirus 2019 Source Nasal/Nares 12/11/21 16:13 Blood Cultures: No Data to Display Toxicology Panel: No Data to Display Panel: No Data to Display Anesthesia Assessment and Plan Anesthesia History Personal History: No History of Anesthesia Complications Family History: No Family History of Anesthesia Complications Exercise Tolerance Exercise Tolerance: Metabolic Equivalents>4 Pertinent Negatives Pertinent Negatives: No Symptoms of GERD, No Major Cardiovascular Symptoms or Complaints and No Major Pulmonary Symptoms or Complaints Cardiac & Pulmonary Exam Cardiac Exam: Normal S1/S2 Heart Sounds Pulmonary Exam: Clear Bilateral Breath Sounds Implantable Cardiac Device Does patient have a Pacemaker or an ICD?: No Airway Exam Known Difficult Airway: No Mallampati Class: 2 Mouth Opening: Normal (> 3cm) Thyromental Distance: Greater than 3 cm Neck Range of Motion: Full ROM Neck Circumference: Normal Teeth Condition: Normal Dentition ASA Classification ASA Score: ASA 2 Emergency Case?: No NPO Status NPO Status: Full Stomach Status Status: Positive HCG Anesthesia Plan Resuscitation Status: Full Code Anesthesia Technique: Spinal Anesthesia Airway Planned: Natural Airway Pain Management: Intrathecal Analgesia Monitors Used: Standard Monitors
--- NOTE | 2021-12-12 20:11 | W.ANESPROC ---
Intrathecal Analgesia Date Performed: 12/12/21 Procedure Time: 18:05 Requesting Provider: Julia Posada Procedure Location: Obstetrics Reason Performed: Labor Intrathecal Analgesia Standard Monitors Applied: Blood Pressure, SpO2 and See EMR for corresponding vital signs Patient Position: Other (Tripod) Timeout Performed: Yes Sedation Given (Indicate Dose Given): No Sedation given Patient Mental Status: Awake Sterility: Hand Hygiene, Surgical Cap, Surgical Mask, Sterile Gloves and Chlorhexidine Placement Site: L3-L4 Interspace Spinal Needle Type: Sprotte 25 Gauge Needle Length: 3.5 Inch Spinal Procedure: Site Prepped, 1% Lidocaine to skin and subcutaneous tissue with 25G needle, Introducer Needle Used, Spinal Needle Placed, Positive CSF Flow and Medication Injected Paresthesia: None Spinal Local Anesthetic (Indicate Dose Given): Bupivacaine 0.25% PF (ml) Dose:: 1mL Additives (Indicate Dose Given): Fentanyl PF Dose:: 20mcg and Duramorph PF Dose:: 150mcg Ultrasound: Not Used Number of Attempts (See previous attempts in note section): 1 Procedure Tolerated: No Complications and Patient tolerated well Procedure Outcome: Successful Performed By: Mimi Vaz
[2021-12-12] MEDS: Oxytocin/Normal Saline 30 UNIT/500 ML BAG 95 UNITS IV (20:57)
[2021-12-12] MEDS: Naloxone 0.4 MG/ML VIAL IVP (21:28)
[2021-12-12] MEDS: Ondansetron 4 MG/2 ML VIAL IVP (23:32)
--- NOTE | 2021-12-12 23:54 | W.OBDELIVERY ---
Date of service: 12/12/21 Time of Service: 23:54 OB Labor/ Delivery Information Baby A Delivery Delivery Method: Spontaneaous Presentation: Cephalic Cephalic Position: Vertex Vertex Position: Left Occipital Anterior Breech Position: N/A Cord Description-Baby A: 3 Vessels, Nuchal Cord (pushed back over shoulders and body delivered through cord loop) and Tight Amniotic Fluid: Clear Estimated Blood Loss: 200 Delivery Outcome: Liveborn Transferred: Remains with Mother Note: Pt progressed to 6/100% and requested intrathecal which was placed successfully and to good effect. Pt relaxed and rested on left lateral position for an hour and then felt urges to push. 2nd stage huddle completed, she pushed while remaining on her side, of vigorous male infant over intact perineum, delivery assisted by FOB, tight nuchal cord unable to be reduced over head, body delivered through cord loop into father's hands who handed the baby to mother's arms. pitocin infusion begun, cord ceased pulsating and clamped then cut by FOB, cord blood collected, Viki placenta delivered intact with 3 VC, pt plans to take the placenta home with her. Minimal lochia noted with fundus firm below umbilicus, inspection of perineum and vaginal vault reveals no laceration. Strong family bonding observed, apgars 8/9, weight 3615 gms. Providers Nurse Engineering Drawings Checker: Julia Posada Fruit Harvest Machine Operator: Mimi Vaz Nurse: Noemy Palma Nurse: Julian Osorio Labor/Delivery Information Number of Babies in Womb: 1 Steroids Given: None Reason Steroids Not Administered: N/A Group Beta Strep: Negative Antibiotics Administered: No Rubella Status: Immune Blood Type: O- Varicella Immunity: Immune Shoulder Dystocia: No Stages of Labor Complete Dilatation Date: 12/12/21 Complete Dilatation Time: 20:38 ROM Baby A: 12/12/21 ROM Baby A: 15:57 ROM Total Time- Baby A: [id number] Infant Delivery Date-Baby A: 12/12/21 Delivery Time-Baby A: 20:53 Labor Stage 2 Duration: 15 minutes Placenta Delivery Date-Baby A: 12/12/21 Placenta Delivery Time-Baby A: 21:03 Labor-Stage 3 Duration: 10 minutes Placenta Cultured: No Placenta Status: Delivered Baby A Gender: Male Gestational Status: Term (39-41.6 wks) Gestational Age in Weeks/Days: 40 Weeks and 0 Days weight: 7 lb 15.515 oz Weight Comment: 3615 gms Length-Baby A: 17.5 in Head Circumference-Baby A: 14 in Score-1 Minute Interval(Baby A) Heart Rate-1 minute: 100 BPM or Greater Respiratory Effort- 1 minute: Slow Respiration/Weak Cry Muscle Tone-1 minute: Active Movement Reflex Response-1 minute: Prompt Response Color-1 minute: Bluish Hands or Feet Total Score-1 minute: 8 Score-5 Minute Interval(Baby A) Heart Rate- 5 minute: 100 BPM or Greater Respiratory Effort-5 minute: Spontaneous/Strong Cry Muscle Tone-5 minute: Active Movement Reflex Response-5 minute: Prompt Response Color-5 minute: Bluish Hands or Feet Total Score- 5 minute: 9
--- NOTE | 2021-12-12 23:57 | W.ANESPOSTOP ---
Postoperative Evaluation Date, Time and Location Date Performed: 12/12/21 Time Performed: 23:20 Patient Location: Obstetrics Vital Signs Most Recent Imported Vital Signs: Most Recent Vital Signs Temp Pulse Resp BP Pulse Ox 36.7 C 79 20 109/61 100 12/12/21 19:28 12/12/21 22:47 12/12/21 20:20 12/12/21 22:47 12/12/21 20:38 Pain Score Most Recent Pain Score: Most Recent Pain Score Pain Level [Lower Abdomen] 2 12/12/21 04:31 Pain Level 5 12/11/21 16:45 Assessment Mental Status: Awake (Alert & Oriented to Patient Baseline) Airway and Respiratory Function: Patent airway with normal (patient baseline) respiratory exam Cardiovascular Function: Hemodynamically Stable Hydration Status: Adequately Hydrated Nausea & Vomiting: No Nausea or Vomiting Pain: Pain is tolerable per patient Peripheral Nerve Block: Patient did not receive a nerve block Postoperative Comments:: Reports some mild itching, tolerable.
[2021-12-13 00:30] VITALS: BP 102/50; PULSE 67; RESP 18; TEMP 37.2
[2021-12-13] MEDS: Naloxone 0.4 MG/ML VIAL IVP ×2 (00:32→01:33)
[2021-12-13] MEDS: diphenhydrAMINE 25 MG CAP PO (02:21)
[2021-12-13 04:12] VITALS: BP 103/60; PULSE 73; RESP 18; TEMP 36.8
--- NOTE | 2021-12-13 07:21 | W.PM.OBPNV1 ---
Date of service: 12/13/21 Time of Service: 07:21 Assessment and Plan Assessment and plan (1) Term delivered: Status: Acute Exam Physical Exam Vital signs: Temp Pulse Resp BP Pulse Ox 98.2 F 73 18 103/60 100 12/13/21 04:12 12/13/21 04:12 12/13/21 04:12 12/13/21 04:12 12/12/21 20:38 Results Hemoglobin/Hematocrit: Hgb 11.7 g/dL (11.2-15.7) 12/11/21 16:22 Hct 34.6 % (36.0-46.0) L 12/11/21 16:22 Abnormal Lab Findings: Abnormal Labs 12/11/21 16:22 RBC 3.85 L Hct 34.6 L MPV 11.6 H
[2021-12-13 07:55] VITALS: BP 88/44; PULSE 56; RESP 14; TEMP 36.7
--- NOTE | 2021-12-13 12:44 | W.PM.OBPNV1 ---
Date of service: 12/13/21 Time of Service: 12:44 Assessment and Plan Assessment and plan (1) Term delivered: Status: Acute Assessment and plan: A: PPD#1 Nml recovery; pt pleased with experience off to a good start P: Pt considering requesting discharge tonight after 24 hr minh RhoGam prior to discharge Vasectomy is planned for BCM F/up at 2 & 6 wks Written instructions reviewed and given to pt Subjective Subjective Patient comments: Pain well controlled (generalized itching likely from intrathecal medication), Tolerating diet and Flatus present Patient's Mood: happy baby status: Doing well, Nursing well, Rooming in and Strong Bonding Observed Exam Physical Exam Vital signs: Temp Pulse Resp BP Pulse Ox 98.2 F 73 18 103/60 100 12/13/21 04:12 12/13/21 04:12 12/13/21 04:12 12/13/21 04:12 12/12/21 20:38 Vital Signs Reviewed: Yes Constitutional Constitutional: no acute distress and cooperative HEENT Exam HEENT Exam: Normal Neck Exam Neck Exam: Normal Breast Exam Bilateral: Breast Exam: Normal and Soft Nipple Exam: Normal and Uninjured Respiratory Exam Respiratory Exam: Normal Cardiovascular Exam Cardiovascular Exam: Normal Abdominal Exam Abdomen: Other (soft, nontender) Fundal Exam Fundus: Below Umbilicus and Firm Rectal Exam Rectal Exam: Normal Exam Perineum: Intact and Normal Extremities Exam Extremity Exam: Normal, Full ROM and Warm to Touch Back/Spine/Pelvis Exam Back Exam: Normal Skin Exam Skin Exam: Normal Neurological Exam Neurological Exam: Normal Psychiatric Exam Psychiatric Exam: Normal
[2021-12-13 15:30] VITALS: BP 103/65; PULSE 61; RESP 20; TEMP 36.7
--- NOTE | 2021-12-14 07:02 | DSE_ITS ---
Date of service: 12/13/21 Time of Service: 22:00 DS: Diagnosis Discharge Diagnosis (1) Term delivered: Status: Acute Discharge Plan Disposition Patient Disposition: HOME Condition: Good Discharge Details Reason For Visit: Category 2 Tracing,Post Dates Admit Date/Time: 12/11/21 16:03 Admit Provider: Carey Montero Attending Provider: Carey Montero Primary Care Provider: Zhao Montes Hospital Course Hospital Course: Spontaneous labor, , nml course Home Meds and New Rx's Prescriptions: No Action multivitamin Tablet 1 tab PO DAILY Complex B-100 Tablet Extended Release 1 tab PO DAILY omega-3 fatty acids Capsule 450 cap PO DAILY magnesium Tablet 1 tab PO DAILY Discharge Instructions Additional Instructions: Please keep your 2 & 6 wk appointments with your vocational instructor, if you prefer you may change your 2 wk appointment to a telehealth appointment. Please call for any and all concerns. Stand Alone Forms: BC Instructions, BC Post Vaginal Deliver Activity:: Activity as Tolerated Equipment/Supplies:: No Equipment Needed Diet:: Normal Diet Discharge Orders Discharge Orders: Discharge Order (Routine); Ordered 12/13/21 Ordered By: Julia Posada Discharge Data Discharge Date/Time-TO BE ENTERED AT DEPARTURE: 12/13/21 22:20 OB:DS Summary Summary Vaginal Delivery Method: Spontaneaous Episiotomy Description: None Laceration Description: None Laceration Extension: N/A Contraception Discussed Contraception Discussed: Yes Contraceptive Plan: Vasectomy, [place] Gender-Baby A: Male weight: 7 lb 15.515 oz Status at Discharge Functional status at discharge: independent ambulation Overall status at discharge: patient is progressing back to baseline Mental Status: mental status grossly normal Speech and Movement: speech and movement normal and speech clear Mood: congruent mood Affect: normal affect Exam Physical Exam Vital signs: Temp Pulse Resp BP Pulse Ox 98.1 F 61 20 103/65 100 12/13/21 15:30 12/13/21 15:30 12/13/21 15:30 12/13/21 15:30 12/12/21 20:38 Constitutional Constitutional: no acute distress and cooperative HEENT Exam HEENT Exam: Normal Neck Exam Neck Exam: Normal Breast Exam Bilateral: Breast Exam: Normal and Soft Respiratory Exam Respiratory Exam: Normal Cardiovascular Exam Cardiovascular Exam: Normal Abdominal Exam Abdomen: Other (soft, nontender) Fundal Exam Fundus: Below Umbilicus and Firm Rectal Exam Rectal Exam: Normal Exam Perineum: Intact and Normal Extremities Exam Extremity Exam: Normal, Full ROM and Warm to Touch Back/Spine/Pelvis Exam Back Exam: Normal Skin Exam Skin Exam: Normal Neurological Exam Neurological Exam: Normal Psychiatric Exam Psychiatric Exam: Normal PFSH All Active Problems (Updated 12/13/21 @ 07:22 by Julia Posada) Term delivered (Acute) Rh negative state in antepartum period (Acute) Low back pain (Acute) coccgeal injuries - sees a core shaper sides MTHFR gene mutation (Acute) Pernicious anemia (Acute) Takes oral methylated B-12 COVID (Acute) Tested positive 05/02/21 Medical History (Updated 12/13/21 @ 07:22 by Julia Posada) Category II heart rate tracing during maternal care in third trimester Family history of thyroid disease in mother Lyme disease 1765-2027, treated with herbal medicine Post-dates Surgical History (Updated 06/08/21 @ 14:54 by Carey Montero CNM) Fracture, clavicle Family History (Updated 06/08/21 @ 13:38 by Carey Montero CNM) Mother Depression Osteoarthritis Graves' disease H/O radioactive iodine thyroid ablation Maternal Grandfather Substance use disorder Maternal Grandmother Substance use disorder Social History Smoking/Tobacco Use Status: Never Smoking risk assessment performed?: Yes Alcohol Intake: never Drug use: Never Substance use type: does not use Do you feel safe at home: Yes Do you feel safe in your relationship?: Yes History History 4 Para 1 Hx # Term Pregnancies 1 Multiple births 0 Hx # Pregnancies 0 Ectopic pregnancies 0 AB induced 2 Hx Number of Living Children 1 AB spontaneous 0 Past Pregnancies Del. Date GA/Weeks # Preg Succ Route Wgt Sex Labor Lgth Anesth esia Location Prov [facility] 02/26/17 40 No Yes vaginal 8 lb 2 oz Male 17 [facility] Delivery Date: 02/26/17 Last Updated by: Julia Posada Home transfer for epidural, 4-5 hrs after arrival Sydni BUTLER: Data Vitals/I&O Vitals and I&O: Vital Signs Temperature 98.1 F 12/13/21 15:30 Pulse 61 12/13/21 15:30 Pulse Rhythm Regular 12/13/21 07:55 Respiratory Rate 20 12/13/21 15:30 Blood Pressure 103/65 12/13/21 15:30 Blood Pressure Mean 77 12/13/21 15:30 Pulse Oximetry 100 12/12/21 20:38 Oxygen Delivery Method Room Air 12/11/21 16:45 Oxygen Flow Rate 0 12/11/21 16:45 Pain Level 0 12/13/21 15:30 Comment 12/13/21 00:30 Intake & Output 12/13/21 12/13/21 12/14/21 11:59 23:59 11:59 Intake Total 337.25 / 337.25 Output Total 1600 / 1600 Balance -1262.75 / -1262.75 Intake: IV 337.25 / 337.25 Output: Urine 1600 / 1600 Data Completed and Pending Labs on day of discharge: Labs from last 24 hours 12/13/21 12/11/21 15:35 16:22 Patient ABO/Rh O Negative Antibody Screen POSITIVE Antibody Identification Anti-D Screen Pending [facility] Unit Number [id number] Unit Expiration Date [id number] Product Lot # [id number]
== END 2021-12-13 22:20 | disposition home or self-care (01) | DRG 806 ==
LOC: OBS 16:59 → BCD 16:59
PROVIDERS: Admitting Provider Advanced Practice Midwife; PCP General Practice; Visit Provider Advanced Practice Midwife
DX: O48.0 Post-term pregnancy (principal); Z37.0 Single live birth; O99.284 Endocrine, nutritional and metabolic diseases complicating childbirth; O76 Abnormality in fetal heart rate and rhythm complicating labor and delivery; O69.1XX0 Labor and delivery complicated by cord around neck, with compression, not applicable or unspecified; O36.0930 Maternal care for other rhesus isoimmunization, third trimester, not applicable or unspecified; Z3A.41 41 weeks gestation of pregnancy; O99.02 Anemia complicating childbirth; O75.89 Other specified complications of labor and delivery; D51.0 Vitamin B12 deficiency anemia due to intrinsic factor deficiency; E72.12 Methylenetetrahydrofolate reductase deficiency; M54.50 Low back pain, unspecified; Z86.16 Personal history of COVID-19
CPT/HCPCS: 85027; 85461; 86850; 86900; 86901; 87635; 90384; 59025; 86870; J2310; J2405; J2790; J3010

== ENCOUNTER 2022-01-21 14:25 | Outpatient (REF) | payer MEDICAID, SELFPAY ==
--- NOTE | 2022-01-21 14:00 | PAPFT_PTH ---
PATIENT: Rosenda Toro LOC: [facility] U#:[id number] AGE/SX: 36/F ROOM: RE01/21/[address]: Julia Posada CNM : 1985 BED: DIS: 01/21/2022 SPEC #: [id number] RECD: 01/21/22 17:27 STATUS: HECTOR POTTER #: [id number] GIANCARLO: 01/21/22 14:[address]: Julia Posada DEPT: [facility] Cytology RECD BY: Kinsey Abarca ENTERED: 01/21/22 17:27 SP TYPE: PAPFT OTHR DR: Zhao Montes Tissues: 1 - CX/ENDOCX FOR PAP SMEARS Procedures: PAP THIN PREP/UVM Screening HPV DNA PROBE Comments: [id number]
== END 2022-01-21 14:26 | disposition home or self-care (01) ==
LOC: LBN 14:25
PROVIDERS: PCP General Practice; Visit Provider Advanced Practice Midwife
DX: Z12.4 Encounter for screening for malignant neoplasm of cervix (principal); Z11.51 Encounter for screening for human papillomavirus (HPV)
CPT/HCPCS: 88142; 87624

== ENCOUNTER 2022-04-11 13:32 | Emergency (ER) | payer MEDICAID, SELFPAY ==
[2022-04-11 13:43] VITALS: BP 123/83; PULSE 70; RESP 20; TEMP 36.8; O2SAT 98
[2022-04-11 14:58] LABS: Abs Immature Grans 0.03 10^3/uL (0.0-0.06); Absolute Basophil Count 0.04 10^3/uL (0.0-0.2); Absolute Eosinophil Count 0.01 10^3/uL (0.0-0.7); Absolute Lymphocyte Count 0.91 10^3/uL (1.2-3.4); Absolute Monocyte Count 0.81 10^3/uL (0.1-0.8); Absolute Neutrophil Count 11.96 10^3/uL (1.2-6.7); Basophils % 0.3; Eosinophils % 0.1; HCT 38.4 % (36.0-46.0); HGB 13.4 g/dL (11.2-15.7); Immature Grans % 0.2; Lymphocytes % 6.6; MCH 31.3 pg (27.0-33.0); MCHC 34.9 % (32.0-36.0); MCV 90 fL (80-95); MPV 10.4 fL (8.0-11.0); Monocytes % 5.9; Neutrophils % 86.9; Platelet Count 283 10^3/uL (130-400); RBC 4.28 10^6/uL (3.93-5.22); RDW 12.6 % (11.7-14.6); RDW-SD 41.8 fL; WBC 13.76 10^3/uL (4.4-10.8)
[2022-04-11 15:10] LABS: ALT 18 U/L (14-59); AST 13 U/L (15-37); Albumin 4.2 g/dL (3.4-5.0); Alkaline Phosphatase 81 U/L (46-116); Anion Gap 10.1 mmol/L (3-11); BUN 11 mg/dL (7-18); Bilirubin, Total 0.7 mg/dL (0.2-1.0); CO2 22.9 mmol/L (21.0-32.0); CREATININE 0.6 mg/dL (0.55-1.02); Calcium 9.2 mg/dL (8.5-10.1); Chloride 103 mmol/L (98-107); Estimated GFR 120.72 (mL/min/1.73m2); Glucose 92 mg/dL (74-106); Lipase 67 U/L (73-393); Magnesium 1.8 mg/dL (1.8-2.4); Potassium 3.7 mmol/L (3.5-5.1); Sodium 136 mmol/L (136-145); Total Protein 7.9 g/dL (6.4-8.2)
--- NOTE | 2022-04-11 15:25 | NUR.NOTE ---
Patient report all symptoms have resolved. Refusing CT scan. MD notified. nursing Note:
[2022-04-11 15:39] LABS: Source Nasal/Nares
[2022-04-11 16:13] LABS: COVID-19 PCR Negative (Negative)
--- NOTE | 2022-04-11 16:36 | W.ED.GENAD ---
Discharge Plan Disposition Patient Disposition: Home Condition: Stable Discharge Details Clinical Impression: Abdominal pain, left lower quadrant, Rectal bleeding Primary Care Provider: Zhao Montes ED Provider: George Larson Home Meds and New Rx's Prescriptions: No Action multivitamin Tablet 1 tab PO DAILY Complex B-100 Tablet Extended Release 1 tab PO DAILY omega-3 fatty acids Capsule 450 cap PO DAILY magnesium Tablet 1 tab PO DAILY Discharge Instructions Instructions: Rectal Bleeding (ED), Abdominal Pain (ED) Additional Instructions: Medication reconciliation could not be performed today. Please discuss your medications with your doctor and take as prescribed. COVID testing today was negative. A specific etiology for your symptoms today was not determined. Should you wish to pursue CT of the abdomen pelvis as recommended to better determine etiology of bleeding and pain, please return to the emergency department at any time. Please contact your primary care physician to arrange follow-up. Return to the ER immediately for any worsening or new concerning symptoms or at any time should you wish to pursue diagnostics studies that were recommended. Referrals: Zhao Montes [Primary Care Provider] - Discharge Data Discharge Date/Time-TO BE ENTERED AT DEPARTURE: 04/11/22 17:11 Medical Decision Making 36-year-old female here with left sided abdominal discomfort that started early this morning with associated nausea, vomiting, loose stool with blood in her stool. Labs reviewed and leukocytosis noted. Concern for gastroenteritis versus diverticulitis versus other. Plan to obtain CT of the abdomen pelvis to assess for acute surgical pathology. Plan discussed with patient and she notes feeling better and provides informed refusal of CT imaging. Patient will be discharged with plan for outpatient follow-up. She was encouraged to return immediately for any worsening, new concerning symptoms or if she wishes to pursue CT as recommended. Lab Data Lab results reviewed: Yes I reviewed the patient's lab results. Labs: Laboratory Tests Range/Units 04/11/22 04/11/22 04/11/22 14:40 14:40 14:47 WBC (4.4-10.8) 10^3/uL 13.76 H RBC (3.93-5.22) 10^6/uL 4.28 Hgb (11.2-15.7) g/dL 13.4 Hct (36.0-46.0) % 38.4 MCV (80-95) fL 90 MCH (27.0-33.0) pg 31.3 MCHC (32.0-36.0) % 34.9 RDW (11.7-14.6) % 12.6 Plt Count (130-400) 10^3/uL 283 MPV (8.0-11.0) fL 10.4 Immature Gran % 0.2 Neutrophils % 86.9 Lymphocytes % 6.6 Monocytes % 5.9 Eosinophils % 0.1 Basophils % 0.3 Nucleated RBC % (0.0-0.3) % 0.0 Absolute Neutrophils (1.2-6.7) 10^3/uL 11.96 H Absolute Lymphocytes (1.2-3.4) 10^3/uL 0.91 L Absolute Monocytes (0.1-0.8) 10^3/uL 0.81 H Absolute Eosinophils (0.0-0.7) 10^3/uL 0.01 Absolute Basophils (0.0-0.2) 10^3/uL 0.04 Sodium (136-145) mmol/L 136 Potassium (3.5-5.1) mmol/L 3.7 Chloride (98-107) mmol/L 103 Carbon Dioxide (21.0-32.0) mmol/L 22.9 Anion Gap (3-11) mmol/L 10.1 BUN (7-18) mg/dL 11 Creatinine (0.55-1.02) mg/dL 0.6 Est GFR (CKD-EPI 2020) (mL/min/1.73m2) 120.72 Glucose (74-106) mg/dL 92 Calcium (8.5-10.1) mg/dL 9.2 Magnesium (1.8-2.4) mg/dL 1.8 Total Bilirubin (0.2-1.0) mg/dL 0.7 AST (15-37) U/L 13 L ALT (14-59) U/L 18 Alkaline Phosphatase (46-116) U/L 81 Total Protein (6.4-8.2) g/dL 7.9 Albumin (3.4-5.0) g/dL 4.2 Lipase (73-393) U/L 67 COVID-19 Source SARS-CoV-2 (PCR) (Negative) Patient ABO/Rh Cancelled Range/Units 04/11/22 15:25 WBC (4.4-10.8) 10^3/uL RBC (3.93-5.22) 10^6/uL Hgb (11.2-15.7) g/dL Hct (36.0-46.0) % MCV (80-95) fL MCH (27.0-33.0) pg MCHC (32.0-36.0) % RDW (11.7-14.6) % Plt Count (130-400) 10^3/uL MPV (8.0-11.0) fL Immature Gran % Neutrophils % Lymphocytes % Monocytes % Eosinophils % Basophils % Nucleated RBC % (0.0-0.3) % Absolute Neutrophils (1.2-6.7) 10^3/uL Absolute Lymphocytes (1.2-3.4) 10^3/uL Absolute Monocytes (0.1-0.8) 10^3/uL Absolute Eosinophils (0.0-0.7) 10^3/uL Absolute Basophils (0.0-0.2) 10^3/uL Sodium (136-145) mmol/L Potassium (3.5-5.1) mmol/L Chloride (98-107) mmol/L Carbon Dioxide (21.0-32.0) mmol/L Anion Gap (3-11) mmol/L BUN (7-18) mg/dL Creatinine (0.55-1.02) mg/dL Est GFR (CKD-EPI 2020) (mL/min/1.73m2) Glucose (74-106) mg/dL Calcium (8.5-10.1) mg/dL Magnesium (1.8-2.4) mg/dL Total Bilirubin (0.2-1.0) mg/dL AST (15-37) U/L ALT (14-59) U/L Alkaline Phosphatase (46-116) U/L Total Protein (6.4-8.2) g/dL Albumin (3.4-5.0) g/dL Lipase (73-393) U/L COVID-19 Source Nasal/Nares SARS-CoV-2 (PCR) (Negative) Negative Patient ABO/Rh HPI General Mode of arrival: ambulatory. Date/Time Provider Initiated Documentation: 04/11/22 14:38. Limitations to Documentation: no limitations. Information obtained by: patient. HPI Narrative: 36-year-old female presents with chief complaint of bloody stool. Patient notes she has been having left-sided abdominal pain since 2 AM this morning. Pain crampy and moderate to severe at times. She had associated nausea and vomiting and had loose stool that seemed to have mucus and blood. She has had no continued bleeding. No associated fever. Related Data Home Medications Medication Instructions Recorded Confirmed magnesium 1 tab PO DAILY 05/02/21 01/21/22 omega-3 fatty acids 450 cap PO DAILY 05/02/21 01/21/22 vitamin B complex (Complex B-100 1 tab PO DAILY 06/08/21 01/21/22 tablet,extended release) multivitamin 1 tab PO DAILY 12/03/21 01/21/22 Allergies Allergy/AdvReac Type Severity Reaction Status Date / Time codeine Allergy Verified 01/21/22 13:15 seasonal allergies Allergy Uncoded 01/21/22 13:15 General Stated Complaint: GI Bleed ELIZABETH: 3 Review of Systems All systems reviewed & are unremarkable except as noted in HPI and below Constitutional Constitutional: Denies fever(s) Gastrointestinal Gastrointestinal: Reports as per HPI PFSH All Active Problems (Updated 04/11/22 @ 16:39 by George Larson MD) Abdominal pain, left lower quadrant (Acute) Rectal bleeding (Acute) Care and examination of lactating mother (Acute) Low back pain (Acute) coccgeal injuries - sees a tonger MTHFR gene mutation (Acute) Pernicious anemia (Acute) Takes oral methylated B-12 Medical History (Updated 04/11/22 @ 16:39 by George Larson MD) Category II heart rate tracing during maternal care in third trimester COVID Tested positive 05/02/21 Family history of thyroid disease in mother Lyme disease 8177-3713, treated with herbal medicine Post-dates Rh negative state in antepartum period Term delivered Surgical History (Updated 06/08/21 @ 14:54 by Carey Montero CNM) Fracture, clavicle Family History (Updated 06/08/21 @ 13:38 by Carey Montero CNM) Mother Depression Osteoarthritis Graves' disease H/O radioactive iodine thyroid ablation Maternal Grandfather Substance use disorder Maternal Grandmother Substance use disorder Social History Smoking/Tobacco Use Status: Never Smoking risk assessment performed?: Yes Alcohol Intake: never Drug use: Never Substance use type: does not use Do you feel safe at home: Yes Do you feel safe in your relationship?: Yes History History 4 Para 1 Hx # Term Pregnancies 1 Multiple births 0 Hx # Pregnancies 0 Ectopic pregnancies 0 AB induced 2 Hx Number of Living Children 1 AB spontaneous 0 Past Pregnancies Del. Date GA/Weeks # Preg Succ Route Wgt Sex Labor Lgth Anesthesia Location Prov [facility] 02/26/17 40 No Yes vaginal 3685.438 g Male [facility] 12/12/21 40 No Yes vaginal 3614.564 g Male 5hr 21 min [facility] Delivery Date: 02/26/17 Last Updated by: Julia Posada Home transfer for epidural, [facility] Delivery Date: 12/12/21 Last Updated by: KIKI Zamorano Exam Const General: cooperative and no acute distress HENMT Mouth: moist mucous membranes Eyes Conjunctivae: normal conjunctivae Sclera: normal sclerae EOM: EOM intact bilaterally Neck Neck: trachea midline and supple Resp Auscultation: clear to auscultation bilaterally, no rales, no rhonchi and no wheezes Cardio Rate: regular rate and not tachycardic Rhythm: regular rhythm GI Palpation: soft, not firm, no guarding, no masses, not rigid and tender (minimal ttp LLQ) Neuro General: patient alert, patient awake and tone normal Course Vital Signs Vital signs: Vital Signs Temperature 36.8 C 04/11/22 13:43 Pulse 70 04/11/22 13:43 Respiratory Rate 20 04/11/22 13:43 Blood Pressure 123/83 04/11/22 13:43 Pulse Oximetry 98 04/11/22 13:43 Temperature 36.8 C 04/11/22 13:43 Temperature Source Oral 04/11/22 13:43 Pulse 70 04/11/22 13:43 Respiratory Rate 20 04/11/22 13:43 Respiratory Effort 04/11/22 14:56 Blood Pressure 123/83 04/11/22 13:43 Blood Pressure Position Sitting 04/11/22 13:43 Pulse Oximetry 98 04/11/22 13:43 Oxygen Delivery Method Room Air 04/11/22 13:43 Oxygen Flow Rate 0 04/11/22 13:43 Pain Level 3 04/11/22 14:56 Lab/Test Results Lab/Test Results: Laboratory Tests Range/Units 04/11/22 04/11/22 04/11/22 14:40 14:40 15:25 WBC (4.4-10.8) 10^3/uL 13.76 H RBC (3.93-5.22) 10^6/uL 4.28 Hgb (11.2-15.7) g/dL 13.4 Hct (36.0-46.0) % 38.4 MCV (80-95) fL 90 MCH (27.0-33.0) pg 31.3 MCHC (32.0-36.0) % 34.9 RDW (11.7-14.6) % 12.6 Plt Count (130-400) 10^3/uL 283 MPV (8.0-11.0) fL 10.4 Immature Gran % 0.2 Neutrophils % 86.9 Lymphocytes % 6.6 Monocytes % 5.9 Eosinophils % 0.1 Basophils % 0.3 Nucleated RBC % (0.0-0.3) % 0.0 Absolute Neutrophils (1.2-6.7) 10^3/uL 11.96 H Absolute Lymphocytes (1.2-3.4) 10^3/uL 0.91 L Absolute Monocytes (0.1-0.8) 10^3/uL 0.81 H Absolute Eosinophils (0.0-0.7) 10^3/uL 0.01 Absolute Basophils (0.0-0.2) 10^3/uL 0.04 Sodium (136-145) mmol/L 136 Potassium (3.5-5.1) mmol/L 3.7 Chloride (98-107) mmol/L 103 Carbon Dioxide (21.0-32.0) mmol/L 22.9 Anion Gap (3-11) mmol/L 10.1 BUN (7-18) mg/dL 11 Creatinine (0.55-1.02) mg/dL 0.6 Est GFR (CKD-EPI 2020) (mL/min/1.73m2) 120.72 Glucose (74-106) mg/dL 92 Calcium (8.5-10.1) mg/dL 9.2 Magnesium (1.8-2.4) mg/dL 1.8 Total Bilirubin (0.2-1.0) mg/dL 0.7 AST (15-37) U/L 13 L ALT (14-59) U/L 18 Alkaline Phosphatase (46-116) U/L 81 Total Protein (6.4-8.2) g/dL 7.9 Albumin (3.4-5.0) g/dL 4.2 Lipase (73-393) U/L 67 COVID-19 Source Nasal/Nares SARS-CoV-2 (PCR) (Negative) Negative
[2022-04-11 16:44] VITALS: BP 123/83; PULSE 70; RESP 20; TEMP 36.8; O2SAT 98
[2022-04-11 16:45] VITALS: BP 109/71; PULSE 68; TEMP 37.5; O2SAT 98
== END 2022-04-11 17:11 | disposition home or self-care (01) ==
PROVIDERS: Emergency Provider Student in an Organized Health Care Education/Training Program; PCP General Practice
DX: K62.5 Hemorrhage of anus and rectum (principal); R10.32 Left lower quadrant pain; R10.814 Left lower quadrant abdominal tenderness; R11.2 Nausea with vomiting, unspecified; D72.829 Elevated white blood cell count, unspecified; Z86.16 Personal history of COVID-19; Z20.822 Contact with and (suspected) exposure to COVID-19
CPT/HCPCS: 36415; 80053; 83690; 86900; 86901; 87635; 99282; 83735; 85025

== ENCOUNTER 2024-02-07 04:44 | Emergency (ER) | payer MEDICAID, SELFPAY ==
--- NOTE | 2024-02-07 04:49 | W.ED.GENAD ---
Discharge Plan Disposition Patient Disposition: Home Condition: Good Discharge Details Clinical Impression: Rupture of cyst of right ovary Primary Care Provider: Zhao Montes ED Provider: Blake Lam Home Meds and New Rx's Prescriptions: No Action No Known Home Meds Discharge Instructions Instructions: Ovarian Cyst ED Additional Instructions: You were seen in the ED for abdominal pain. Your laboratory studies are completely normal. CT scan suggest a ruptured right ovarian cyst otherwise appears normal. Would take ibuprofen 600 mg 3 times a day over the weekend. Follow-up with primary care or [facility] next week. Return to ED for severe worsening pain, persistent vomiting, fever, other concerns. HPI General Mode of arrival: ambulatory. Date/Time Provider Initiated Documentation: 02/07/24 04:49. Limitations to Documentation: no limitations. Information obtained by: patient and RN notes reviewed. HPI Narrative: Patient presents to ED with complaint of abdominal pain mostly right-sided in nature. Began a little over 24 hours ago. Seem to be better during the day when she was just taking liquids. Ate dinner tonight which consisted of chicken, mashed potatoes, braised cabbage and had return of her pain. She has had soft stool but not watery diarrhea. She has had a couple episodes of vomiting. No fever. She has no chest pain or shortness of breath. She denies any urinary symptoms. She denies pelvic pain. Previously has had laparoscopic surgery for endometriosis, no other abdominal surgeries. She reports being otherwise healthy with no medications. Related Data Home Medications ?Medication ?Instructions ?Recorded ?Confirmed Unknown [No Known Home Meds] 02/07/24 02/07/24 Allergies Allergy/AdvReac Type Severity Reaction Status Date / Time codeine Allergy Unknown Unknown Verified 02/07/24 05:08 seasonal allergies Allergy Wheezing Uncoded 02/07/24 05:08 General ELIZABETH: 3 Review of Systems Narrative: Per HPI Exam Narrative Exam Narrative: Const: WDWN female in NAD. VS per triage. HEENT: NC/AT. Normal facial exam. Neck: Supple. Trachea midline. Lungs: Normal respiratory effort. Lungs are clear. Cor: RRR without murmur. Good radial pulses. GI: Soft/ND. No RUQ tenderness/guarding. Mild RLQ tenderness without guarding. Back: No CVAT. Neuro: A+O x 3. Normal speech, mentation, gait. Cranial nerves II - XII grossly intact. No gross motor or sensory deficit. Ext: No C/C/E. Medical Decision Making Patient presents to ED with right-sided abdominal pain. When pointing to where she is feeling most of the pain she seems to be holding the right upper quadrant. On exam she has no right upper quadrant tenderness, guarding or Mejia sign. She has no CVAT. She has mild right lower quadrant tenderness but no guarding. She otherwise looks well. Will place IV and give ondansetron and ketorolac. Laboratory studies sent. Will obtain CT to evaluate for potential appendicitis, right-sided diverticulitis, less likely cholecystitis. Patient laboratory studies are normal. Urinalysis negative. Urine test negative. CT scan of the abdomen pelvis per preliminary radiology read with evidence of a ruptured right ovarian cyst with small amount of free fluid. Patient does feel better after medications. Discussed findings with patient. Recommend ibuprofen over the weekend. Follow-up with primary care and/or [facility] next week. Return precautions provided. Lab Data Lab results reviewed: Yes I reviewed the patient's lab results. 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 MTHFR gene mutation (Acute) Pernicious anemia (Acute) Takes oral methylated B-12 Medical History No significant past medical history Surgical History History of laparoscopy Fracture, clavicle Family History Mother Depression Osteoarthritis Graves' disease H/O radioactive iodine thyroid ablation Maternal Grandfather Substance use disorder Maternal Grandmother Substance use disorder Social History Smoking/Tobacco Use Status: Never Smoking risk assessment performed?: Yes Alcohol Intake: never Drug use: Never Substance use type: does not use Do you feel safe at home: Yes Do you feel safe in your relationship?: Yes History History 4 Para 2 Hx # Term Pregnancies 2 Multiple births 0 Hx # Pregnancies 0 Ectopic pregnancies 0 AB induced 2 Hx Number of Living Children 2 AB spontaneous 0 Past Pregnancies Del. Date GA/Weeks # Preg Succ Route Wgt Sex Labor Lgth Anesthesia Location Prov Complic 02/26/17 40 No Yes vaginal 3685.438 g Male 17 regional [facility] 12/12/21 40 No Yes vaginal 3614.564 g Male 5hr 21 min [facility] Delivery Date: 02/26/17 Last Updated by: Julia Posada Home transfer for epidural, 4-5 hrs after arrival [facility] Delivery Date: 12/12/21 Last Updated by: KIKI Zamorano
[2024-02-07 04:51] VITALS: BP 116/60; PULSE 79; RESP 18; TEMP 36.4; O2SAT 98
[2024-02-07 04:57] VITALS: BP 116/60; PULSE 79; RESP 16; TEMP 36.4; O2SAT 98
--- NOTE | 2024-02-07 05:00 | DI.CT_ITS ---
Exam(s) CT ABDOMEN PELVIS W EXAM: CT ABDOMEN PELVIS W CLINICAL HISTORY: right side abd pain. TECHNIQUE: Imaging Protocol: Axial computed tomography images with coronal and sagittal reformatted images were created and reviewed CONTRAST MATERIAL: Intravenous: Omnipaque 350 Contrast volume:85ml Oral: no COMPARISON: No exams were available for comparison FINDINGS: ABDOMEN and PELVIS: Lung Bases: No acute findings. Liver: Normal density. No suspicious mass. Gallbladder and biliary tract: No radiodense calculus. No biliary dilation. Pancreas: Normal density. No abnormal calcifications or inflammatory process. No evidence of mass. Spleen: Normal. Kidneys: Normal size, contour and axis. No radiodense stones. No obstructive uropathy. No suspicious masses seen. Adrenal glands: No masses seen. Vasculature: Abdominal aorta non-dilated. Soft tissues: Unremarkable. Bladder: No gross wall thickening. No calculi.No focal mass. Bowel: No obstruction. No bowel wall thickening. Appendix normal. Peritoneal cavity: No ascites. No focal collection. No mesenteric inflammatory response. Bones: Unremarkable for age. Reproductive organs: Retroverted uterus. Collapsed follicle right ovary. Trace fluid in the cul-de- sac, physiologic Lymph nodes: No pathologically enlarged lymph nodes. IMPRESSION:: No acute abnormality in the abdomen or pelvis. Collapsed right ovarian follicle and trace amount of pelvic fluid, likely physiologic. RADIATION DOSE DELIVERED: Total DLP DATA REPOSITORY: All CT scans at this facility are submitted to the National Radiology Data Registry (NRDR) Dose Index Registry (DIR) with the [employer] (ACR). RADIATION OPTIMIZATION: All CT scans at this facility use at least one of these dose optimization te chniques: automated exposure control; mA and/or kV adjustment per patient size (includes targeted exa ms where dose is matched to clinical indication); or iterative reconstruction.
[2024-02-07 05:13] LABS: Abs Immature Grans 0.02 10^3/uL (0.0-0.06); Absolute Basophil Count 0.04 10^3/uL (0.0-0.2); Absolute Lymphocyte Count 2.46 10^3/uL (1.2-3.4); Absolute Monocyte Count 0.59 10^3/uL (0.1-0.8); Absolute Neutrophil Count 7.08 10^3/uL (1.2-6.7); Basophils % 0.4 %; HCT 41.4 % (36.0-46.0); HGB 13.7 g/dL (11.2-15.7); Immature Grans % 0.2 %; Lymphocytes % 23.9 %; MCH 30.6 pg (27.0-33.0); MCHC 33.1 % (32.0-36.0); MCV 92 fL (80-95); MPV 10.4 fL (8.0-11.0); Monocytes % 5.7 %; Neutrophils % 68.8 %; Platelet Count 295 10^3/uL (130-400); RBC 4.48 10^6/uL (3.93-5.22); RDW 12.8 % (11.7-14.6); RDW-SD 43.8 fL; WBC 10.29 10^3/uL (4.4-10.8)
[2024-02-07 05:14] LABS: Bilirubin Negative (Negative); Blood Negative (Negative); Clarity Clear (Clear); Glucose Negative (Negative); Ketones Negative (Negative); Leukocyte Esterase Negative (Negative); Nitrite Negative (Negative); Urobilinogen 0.2 mg/dL (Up to 0.2)
[2024-02-07] MEDS: Ondansetron 4 MG/2 ML VIAL IVP (05:16)
[2024-02-07] MEDS: Ketorolac 30 MG/ML VIAL IVP (05:16)
[2024-02-07] MEDS: Normal Saline - Diluent 50 ML VIAL IJ (05:28)
[2024-02-07] MEDS: Omnipaque 350 MG/ML 100 ML BTL IJ (05:29)
[2024-02-07 05:31] LABS: ALT 21 U/L (14-59); AST 8 U/L (15-37); Albumin 3.9 g/dL (3.4-5.0); Alkaline Phosphatase 66 U/L (46-116); BUN 9 mg/dL (7-18); Bilirubin, Total 0.67 mg/dL (0.2-1.0); CREATININE 0.8 mg/dL (0.55-1.02); Calcium 9.2 mg/dL (8.5-10.1); Chloride 107 mmol/L (98-107); Estimated GFR 97.87 (mL/min/1.73m2); Glucose 105 mg/dL (74-106); Lipase 36 U/L (16-77); Potassium 3.9 mmol/L (3.5-5.1); Sodium 143 mmol/L (136-145); Total Protein 7.8 g/dL (6.4-8.2)
--- NOTE | 2024-02-07 06:40 | DI.VRAD_ITS ---
PROCEDURE INFORMATION: Exam: CT Abdomen And Pelvis With Contrast Exam date and time: 02/07/2024 5:22 AM Age: 38 years old Clinical indication: Abdominal pain; Other: Right side abd pain; Additional info: Right side abd pain x 2 days, PT sts pain is in ruq, no h/o surg. TECHNIQUE: Imaging protocol: Computed tomography of the abdomen and pelvis with contrast. Contrast material: OMNI 350; Contrast volume: 85 ml; Contrast route: INTRAVENOUS (IV); COMPARISON: US OB 2-3 TRIMESTER 07/10/2021 2:03 PM FINDINGS: Liver: Normal. No mass. Gallbladder and biliary ducts: Normal. No calcified stones. No ductal dilation. Pancreas: Unremarkable. Spleen: Normal. Adrenal glands: Normal. No mass. Kidneys and ureters: Normal. No hydronephrosis. Stomach and bowel: Unremarkable. No bowel wall thickening or intestinal obstruction. Appendix: Normal appendix. Intraperitoneal space: Unremarkable. No pneumoperitoneum. No abscess. Vasculature: Unremarkable. Lymph nodes: Unremarkable. Urinary bladder: Unremarkable as visualized. Reproductive: 2.1 cm collapsed/ruptured right ovarian cyst remnant. Small volume free fluid in the dependent pelvis may be due to ovarian cyst rupture or may be physiologic. Bones/joints: Unremarkable. No acute fracture. Soft tissues: Unremarkable. IMPRESSION: 1. 2.1 cm collapsed/ruptured right ovarian cyst remnant. 2. Small volume free fluid in the dependent pelvis may be due to ovarian cyst rupture or may be physiologic. Dictated and Authenticated by: Rhett Sims MD. Ordering:IZABELLA Lozano MD
--- NOTE | 2024-02-07 06:46 | W.PCEDHO ---
Registration Status: Primary Language: Preferred Language: ED Information & Data Chief Complaint Nausea/Vomit/Diar 02/07/24 04:57 Chief Complaint Nausea/Vomit/Diar 02/07/24 04:51 Triage Note pt states that she recently 02/07/24 04:51 got over stomach bug after traveling to [place], felt better, then x3 days ago began to have right rib/abd pain with NV, and worse with eating. Medical / Surgical History (Last Reviewed 02/07/24 @ 05:29 by Blake Lam MD) No significant past medical history (Last Reviewed 02/07/24 @ 05:29 by Blake Lam MD) Fracture, clavicle History of laparoscopy Most Recent Vital Signs Temperature 36.4 C L 02/07/24 04:57 Temperature Source Oral 02/07/24 04:57 Pulse 79 02/07/24 04:57 Respiratory Rate 16 02/07/24 04:57 Respiratory Effort Normal, Non-Labored 02/07/24 04:57 Blood Pressure 116/60 02/07/24 04:57 Blood Pressure Position Sitting 02/07/24 04:57 Pulse Oximetry 98 02/07/24 04:57 Oxygen Delivery Method Room Air 02/07/24 04:57 Oxygen Flow Rate 0 02/07/24 04:51 Pain Level 5 02/07/24 04:57 Allergies codeine Allergy (Unknown, Verified 02/07/24 05:08) Unknown seasonal allergies Allergy (Uncoded 02/07/24 05:08) Wheezing runny nose, itchy throat and eyes Active Medications Generic Name Dose Route Start Last Admin Trade Name Freq PRN Reason Stop Dose Admin Iohexol 100 ml 02/07/24 05:30 02/07/24 05:29 Omnipaque 350 Mg/Ml 100 Ml Btl IJ 03/08/24 23:59 85 ml DIRECTED DEBRA Administration Sodium Chloride 50 ml 02/07/24 05:30 02/07/24 05:28 Normal Saline - Diluent 50 Ml Vial IJ 50 ml .FOR DI USE DEBRA Administration IV IV Catheter Type [Left Peripheral IV Antecubital] IV Catheter Gauge [Left 18 Antecubital] Diagnostics 02/07/24 02/07/24 Range/Units 05:00 04:45 WBC 10.29 (4.4-10.8) 10^3/uL RBC 4.48 (3.93-5.22) 10^6/uL Hgb 13.7 (11.2-15.7) g/dL Hct 41.4 (36.0-46.0) % MCV 92 (80-95) fL MCH 30.6 (27.0-33.0) pg MCHC 33.1 (32.0-36.0) % RDW 12.8 (11.7-14.6) % Plt Count 295 (130-400) 10^3/uL MPV 10.4 (8.0-11.0) fL Immature Gran % 0.2 % Neutrophils % 68.8 % Lymphocytes % 23.9 % Monocytes % 5.7 % Eosinophils % 1.0 % Basophils % 0.4 % Nucleated RBC % 0.0 (0.0-0.3) % Absolute Neutrophils 7.08 H (1.2-6.7) 10^3/uL Absolute Lymphocytes 2.46 (1.2-3.4) 10^3/uL Absolute Monocytes 0.59 (0.1-0.8) 10^3/uL Absolute Eosinophils 0.10 (0.0-0.7) 10^3/uL Absolute Basophils 0.04 (0.0-0.2) 10^3/uL Sodium 143 (136-145) mmol/L Potassium 3.9 (3.5-5.1) mmol/L Chloride 107 (98-107) mmol/L Carbon Dioxide 26.0 (21.0-32.0) mmol/L Anion Gap 10.0 (3-11) mmol/L BUN 9 (7-18) mg/dL Creatinine 0.8 (0.55-1.02) mg/dL Est GFR (CKD-EPI 2020) 97.87 (mL/min/1.73m2) Glucose 105 (74-106) mg/dL Calcium 9.2 (8.5-10.1) mg/dL Total Bilirubin 0.67 (0.2-1.0) mg/dL AST 8 L (15-37) U/L ALT 21 (14-59) U/L Alkaline Phosphatase 66 (46-116) U/L Total Protein 7.8 (6.4-8.2) g/dL Albumin 3.9 (3.4-5.0) g/dL Lipase 36 (16-77) U/L Urine Color Yellow (Yellow) Urine Clarity Clear (Clear) Urine pH 8.0 (5-8) Ur Specific Jackson 1.020 (1.005-1.025) Urine Protein Negative (Neg-Trace) mg/dL Urine Ketones Negative (Negative) mg/dL Urine Blood Negative (Negative) Urine Nitrite Negative (Negative) Urine Bilirubin Negative (Negative) Urine Urobilinogen 0.2 (Up to 0.2) mg/dL Ur Leukocyte Esterase Negative (Negative) Urine Glucose Negative (Negative) mg/dL [id number] Documentation POC Urine Test Start: 02/07/24 05:05 Freq: .Urine Test Status: Active Protocol: Activity Type Activity Date Activity User E-sign Co-sign Detail Recorded Client Recorded Date Recorded By Document 02/07/24 05:11 N.STANLEY [id number] 02/07/24 05:11 NPARKER Intake and Output - 24 Hour Total 02/07/24 04:44 thru 02/07/24 04:57 Weight 72.575 kg Other: Emesis Description Bile Falls Risk Assessment History of Falls No History 02/07/24 04:57 Contributing Factors No Factors 02/07/24 04:57 Ambulatory Aids Independent 02/07/24 04:57 Tubes/Lines None 02/07/24 04:57 Gait Evaluation No gait disturbance 02/07/24 04:57 Cognition No cognitive impairment 02/07/24 04:57 Fall Total Score 0 02/07/24 04:57 Level of Risk Standard/Low Risk 02/07/24 04:57 v v v v v v v v v Sending and/or Receiving Nurses: Please use comment section below to note any information pertinent to the patient hand-off not included above. Information / Comments: Report received from: Julio Aldana @ 0640 02/07/24
[2024-02-07 07:04] VITALS: BP 117/78; PULSE 63; RESP 18; O2SAT 99
== END 2024-02-07 07:06 | disposition home or self-care (01) ==
PROVIDERS: Emergency Provider Emergency Medicine; PCP General Practice
DX: N83.201 Unspecified ovarian cyst, right side (principal)
CPT/HCPCS: 36415; 80053; 81025; 83690; 96374; 96375; 99285; 74177; 81003; 85025; 99284; J1885; J2405; J3490

== ENCOUNTER 2025-01-20 10:01 | Outpatient (REF) | payer SELFPAY | END 2025-01-20 10:02 | disposition home or self-care (01) | LOC: LBN 10:01 | PROVIDERS: PCP General Practice; Visit Provider Obstetrics & Gynecology | DX: Z12.4 Encounter for screening for malignant neoplasm of cervix (principal) | CPT/HCPCS: 88142; 87624 ==

== ENCOUNTER 2025-01-20 10:16 | Outpatient (CLI) | payer SELFPAY ==
[2025-01-20 10:34] LABS: Abs Immature Grans 0.01 10^3/uL (0.0-0.06); HCT 40.9 % (36.0-46.0); HGB 13.7 g/dL (11.2-15.7); Immature Grans % 0.2 %; MCH 30.7 pg (27.0-33.0); MCHC 33.5 % (32.0-36.0); MCV 92 fL (80-95); MPV 10.3 fL (8.0-11.0); Platelet Count 282 10^3/uL (130-400); RBC 4.46 10^6/uL (3.93-5.22); RDW 12.2 % (11.7-14.6); RDW-SD 41.3 fL; WBC 6.03 10^3/uL (4.4-10.8)
[2025-01-20 10:51] LABS: Hemoglobin A1C 5.1 % (<5.7)
[2025-01-20 11:36] LABS: ALT 20 U/L (14-59); AST 10 U/L (15-37); Albumin 4.1 g/dL (3.4-5.0); Alkaline Phosphatase 66 U/L (46-116); Anion Gap 9.1 mmol/L (3-11); BUN 14 mg/dL (7-18); Bilirubin, Total 0.8 mg/dL (0.2-1.0); CO2 27.9 mmol/L (21.0-32.0); Calcium 9.1 mg/dL (8.5-10.1); Calculated LDL 119 mg/dL (<100); Chloride 102 mmol/L (98-107); Cholesterol 210 mg/dL (<200); Estimated GFR 114.16 (mL/min/1.73m2); Glucose 90 mg/dL (74-106); HDL Cholesterol 73 mg/dL (>or=50); Potassium 3.5 mmol/L (3.5-5.1); Sodium 139 mmol/L (136-145); TSH (W/Ref FT4) 1.58 uIU/mL (0.36-3.74); Total Protein 7.8 g/dL (6.4-8.2); Triglyceride 94 mg/dL (<150); Vitamin D 25 Total 26 ng/mL (30-100)
== END 2025-01-20 10:17 | disposition home or self-care (01) ==
LOC: LBO 10:17
PROVIDERS: PCP General Practice; Visit Provider Obstetrics & Gynecology
DX: Z01.419 Encounter for gynecological examination (general) (routine) without abnormal findings (principal); Z13.6 Encounter for screening for cardiovascular disorders
CPT/HCPCS: 36415; 80053; 80061; 82306; 83036; 84443; 85025

== ENCOUNTER → 2025-02-11 03:17 | Outpatient (CLI) | payer SELFPAY ==
--- NOTE | 2025-02-11 06:30 | DI.US_ITS ---
Exam(s) US BREAST LT COMPLETE MAMMO DIAGNOSTIC BI EXAM: MAMMO DIAGNOSTIC BI and U/S breast LT complete CLINICAL HISTORY: left sided palpable mass,abnl breast exam,n64.59,r92.30,dense breasts. TECHNIQUE: Craniocaudal and mediolateral oblique Full Field Digital Mammography views with Computer Aided Diagnosis followed by Tomosynthesis and complete left breast ultrasound. All 4 quadrants of the breast, the retroareolar region and the left axilla were evaluated sonographically. COMPARISON: This is a baseline examination. There are no priors for comparison. FINDINGS: Mammography/Tomosynthesis: Masses/Architectural Distortion: There are no suspicious masses or areas of architectural distortion present. Microcalcifictions: No suspicious pleomorphic-type are seen. Skin Thickening/Nipple Retraction: None. Complete left breast US: Echotexture: Normal appearance of the glandular tissue. Shadowing: No suspicious foci. Cyst: None. Solid lesions: None seen. Ductal dilation: None. IMPRESSION: 1. No evidence of malignancy is noted. 2. Unless there is more urgent need, follow-up screening mammography is recommended, as per [employer] guidelines. 3. The findings were discussed with the patient on the date of the examination. BI-RADS Category 1 - Negative Breast Density - Category B - There are scattered areas of fibroglandular density. Breast density Category C or D implies that the patient has dense breast tissue. Dense breast tissue can make it harder to find cancer on a mammogram. Dense breast tissue is also associated with an increased risk of breast cancer. This information about the result of the mammogram report was provided to the patient to raise their awareness. Use this report when you speak with the patient about their risks for breast cancer, which includes their family history. At that time, you may recommend additional screening tests (Ultrasound or MRI) as these tests may add significant information. A negative radiographic report should not delay biopsy if a dominant or clinically suspicious mass is present. Up to ten percent of cancers are not identified on mammography. A negative report may reinforce clinical impression. Adenosis and dense breasts may obscure an underlying neoplasm. False positive reports average 6 to 10%. Patient will receive a letter notifying them of these results.
== END ==
LOC: DI 03:17
PROVIDERS: PCP General Practice; Visit Provider Obstetrics & Gynecology
DX: R92.30 Dense breasts, unspecified (principal); N64.59 Other signs and symptoms in breast; Z12.31 Encounter for screening mammogram for malignant neoplasm of breast
CPT/HCPCS: 76642; 77062; 77066; G0279